=== PATIENT | female | born 2000 | race Caucasian/White ===

== ENCOUNTER → 2020-12-27 14:10 | Outpatient (CLI) | payer BC, SELFPAY ==
[2020-12-27 13:23] VITALS: BMI 36.7
[2020-12-27 14:54] LABS: Prolactin 8.2 ng/mL; Thyroid Stim Hormone (TSH) 1.11 uIU/mL (0.358-3.74)
[2020-12-31 20:07] LABS: Chlamydia By Nucleic Acid AMP Negative (Negative)
[2020-12-31 21:51] LABS: Gonococcus By Nucleic Acid AMP Negative (Negative)
[2021-01-15 15:53] LABS: HPV Reflexed? NOT INDICATED
== END ==
PROVIDERS: PCP Physician Assistant; Referring Provider Nurse Practitioner Women's Health; Visit Provider Nurse Practitioner Women's Health
DX: Z12.4 Encounter for screening for malignant neoplasm of cervix (principal); Z11.3 Encounter for screening for infections with a predominantly sexual mode of transmission; R30.9 Painful micturition, unspecified; N89.8 Other specified noninflammatory disorders of vagina; Z13.29 Encounter for screening for other suspected endocrine disorder; N92.6 Irregular menstruation, unspecified
CPT/HCPCS: 36415; 84146; 84443; 87070; 87086; 87205; 87491; 87591; 88175; G0145

== ENCOUNTER → 2022-01-14 | Outpatient (CLI) | payer BC, SELFPAY ==
[2022-01-14 18:37] LABS: Hemoglobin A1c 4.6 % (3.8-5.6)
[2022-01-14 18:58] LABS: hCG Titer Quant., Serum 18 mIU/mL (1-3)
[2022-01-17 15:08] LABS: Dilute Prothrombin Time (dPT) 37.1 sec (0.0-47.6); Dilute Russell Viper Venom 41.4 sec (0.0-47.0); PTT-LA 37.5 sec (0.0-51.9); Thrombin Time 18.8 sec (0.0-23.0); dPT Confirm Ratio 1.14 Ratio (0.00-1.34)
[2022-01-17 17:14] LABS: Anti-Cardiolipin Ab, IgA, Qn 25 APL U/mL (0-11); Anti-Cardiolipin Ab, IgG, Qn < 9 GPL U/mL (0-14); Anti-Cardiolipin Ab, IgM, Qn 9 MPL U/mL (0-12); Beta-2-Glycoprotein I IgA <9 (0-25); Beta-2-Glycoprotein I IgG <9 (0-20); Beta-2-Glycoprotein I IgM <9 (0-32); Interpretation Comment: (.)
== END | disposition home or self-care (01) ==
LOC: LAB 17:16
PROVIDERS: PCP Physician Assistant; Referring Provider Obstetrics & Gynecology; Visit Provider Obstetrics & Gynecology
DX: O03.9 Complete or unspecified spontaneous abortion without complication (principal); N96 Recurrent pregnancy loss
CPT/HCPCS: 36415; 83036; 84443; 84702; 86146; 86147

== ENCOUNTER → 2023-05-18 | Outpatient (CLI) | payer BC, SELFPAY ==
[2023-05-18 16:16] LABS: hCG Titer Quant., Serum 5280 mIU/mL (1-3)
[2023-05-21 07:08] LABS: Chlamydia By Nucleic Acid AMP Negative (Negative); Gonococcus By Nucleic Acid AMP Negative (Negative)
== END | disposition home or self-care (01) ==
PROVIDERS: PCP Physician Assistant; Referring Provider Registered Nurse; Visit Provider Registered Nurse
DX: Z34.90 Encounter for supervision of normal pregnancy, unspecified, unspecified trimester (principal)
CPT/HCPCS: 36415; 84702; 87086; 87491; 87591

== ENCOUNTER → 2023-05-20 | Outpatient (CLI) | payer BC, SELFPAY ==
[2023-05-20 14:37] LABS: Absolute Lymphocyte Count 2.85 X10^3/uL (0.83-4.51); Absolute Neutrophil Count 8.5 X10^3/uL (2.0-7.7); Basophil# 0.04 X10^3/uL; Basophil% 0.3 % (0-1); Eosinophil# 0.15 X10^3/uL; Eosinophils% 1.3 % (0-5); Hematocrit 39.6 % (37-47); Hemoglobin 12.9 g/dL (12.0-15.0); Lymphocyte # 2.85 X10^3/ul (0.83-4.51); Lymphocyte % 23.9 % (19-41); Mean Corp Hgb Conc 32.6 g/dL (32-36); Mean Corpuscular Hgb 28.5 pg (27.0-32.0); Mean Corpuscular Volume 87.6 fL (81-99); Monocyte# 0.37 X10^3/uL; Monocyte% 3.1 % (0-10); NRBC Flagged by Analyzer 0 % (0-5); Neutrophil # 8.46 X10^3/uL (2.7-7.7); Neutrophil % 71.1 % (47-70); Platelet Count 322 K/mm3 (150-450); RBC Distribution Width CV 12.1 % (11.6-14.6); Red Blood Count 4.52 M/mm3 (4.2-5.4); White Blood Count 11.9 K/mm3 (4.4-11.0)
[2023-05-20 15:36] LABS: hCG Titer Quant., Serum 9188 mIU/mL (1-3)
[2023-05-20 15:42] LABS: HIV - WCH Non-Reactive (Nonreactive); Hepatitis B Surface Antigen Non-Reactive (Nonreactive); Hepatitis C Antibody Non-Reactive (Nonreactive); Rubella IgG Reactive (Nonreactive); Syphilis Antibodies Non-reactive
== END | disposition home or self-care (01) ==
PROVIDERS: PCP Physician Assistant; Referring Provider Registered Nurse; Visit Provider Registered Nurse
DX: O36.80X0 Pregnancy with inconclusive fetal viability, not applicable or unspecified (principal); Z87.59 Personal history of other complications of pregnancy, childbirth and the puerperium
CPT/HCPCS: 36415; 84702; 85025; 86703; 86762; 86780; 86803; 86850; 86900; 86901; 87340

== ENCOUNTER → 2023-05-29 | Outpatient (CLI) | payer BC, SELFPAY ==
--- NOTE | 2023-05-29 07:52 | US_ITS ---
STUDY: FIRST TRIMESTER OBSTETRICAL ULTRASOUND REASON FOR EXAM: Female, 22 years old early viability LMP: April 14, 2023 TECHNIQUE: Transvaginal TECHNICAL QUALITY: Adequate. PRIOR ULTRASOUND: None. FINDINGS: There is visualization of a single gestational sac in a normal intrauterine position. The mean sac diameter (MSD) measures 2.39 cm, indicating an estimated gestational age (EGA) of 7 weeks, 3 days. The gestational sac shape is within normal limits. 5 mm x 15 mm x 3 mm subchorionic bleed. There is a visualized yolk sac. The yolk sac measures 3.1 cm. The placenta is non-visualized. There is visualization of a live embryo. The crown-rump length (CRL) measures 7.8 mm, indicating an estimated gestational age (EGA) of 6 weeks, 6 days. There is demonstrated cardiac activity with a heart rate of 130 bpm. The estimated gestation age (EGA) by LMP is 8 weeks, 3 days. The estimated date of delivery (EZRA) by LMP is January 05, 2024. The estimated gestation age (EGA) by US is 7 weeks, 1 days. The estimated date of delivery (EZRA) by US is January 14, 2024. The uterus measures 9.7 cm x 6.4 cm x 5.4 cm the uterus appears to be septated. The gestational sac is in the right side of the septum.. There is no demonstrated uterine fibroid. The cervix is closed. The right ovary measures 2.7 cm x 2.9 cm x 2 cm. There is no right ovarian cyst. There is no visualized right adnexal mass or complex lesion. The left ovary measures 2.3 cm x 1.3 cm x 1.7. There is no left ovarian cyst. There is no visualized left adnexal mass or complex lesion. There is no fluid in the cul de sac. US/Init OB < 14Wks US IMPRESSION: Live uterine gestation with a mean gestational age of 7 weeks and 1 day. Septated uterus. Small subchorionic bleed. Electronically Signed: Alonzo Clarke MD at 12:23 EST ,
== END | disposition home or self-care (01) ==
LOC: OPUS 07:50
PROVIDERS: PCP Physician Assistant; Referring Provider Registered Nurse; Visit Provider Registered Nurse
DX: O36.80X0 Pregnancy with inconclusive fetal viability, not applicable or unspecified (principal); Z87.59 Personal history of other complications of pregnancy, childbirth and the puerperium; Z3A.01 Less than 8 weeks gestation of pregnancy
CPT/HCPCS: 76801

== ENCOUNTER → 2023-10-30 | Outpatient (CLI) | payer BC, SELFPAY ==
[2023-10-30 15:09] LABS: Glucose Challenge Gest 1H 50g 130 mg/dL (70-140)
[2023-10-30 15:10] LABS: Absolute Lymphocyte Count 1.92 X10^3/uL (0.83-4.51); Absolute Neutrophil Count 10.4 X10^3/uL (2.0-7.7); Basophil# 0.03 X10^3/uL; Basophil% 0.2 % (0-1); Eosinophil# 0.07 X10^3/uL; Eosinophils% 0.5 % (0-5); Hemoglobin 11.3 g/dL (12.0-15.0); Lymphocyte # 1.92 X10^3/ul (0.83-4.51); Lymphocyte % 14.8 % (19-41); Mean Corp Hgb Conc 34.2 g/dL (32-36); Mean Corpuscular Hgb 30.1 pg (27.0-32.0); Mean Platelet Vol. 9.2 fl (6.2-12.0); Monocyte# 0.41 X10^3/uL; Monocyte% 3.2 % (0-10); NRBC Flagged by Analyzer 0 % (0-5); Neutrophil # 10.43 X10^3/uL (2.7-7.7); Neutrophil % 80.8 % (47-70); Platelet Count 241 K/mm3 (150-450); RBC Distribution Width SD 41.6 fl (35.1-43.9); Red Blood Count 3.75 M/mm3 (4.2-5.4); White Blood Count 12.9 K/mm3 (4.4-11.0)
[2023-10-30 16:26] LABS: HIV - WCH Non-Reactive (Nonreactive); Syphilis Antibodies Non-reactive
== END | disposition home or self-care (01) ==
PROVIDERS: Referring Provider Registered Nurse; Visit Provider Registered Nurse
DX: Z34.90 Encounter for supervision of normal pregnancy, unspecified, unspecified trimester (principal)
CPT/HCPCS: 36415; 82950; 85025; 86703; 86780; 86850; 86900; 86901

== ENCOUNTER → 2024-01-08 | Outpatient (CLI) | payer BC, SELFPAY | END | disposition home or self-care (01) | LOC: LABSPEC 16:18 | PROVIDERS: Referring Provider Registered Nurse; Visit Provider Registered Nurse | DX: Z34.93 Encounter for supervision of normal pregnancy, unspecified, third trimester (principal) | CPT/HCPCS: 87081 ==

== ENCOUNTER 2024-01-21 16:31 | Inpatient (IN) | payer BC, SELFPAY ==
--- NOTE | 2024-01-21 14:02 | US_ITS ---
STUDY: SECOND AND THIRD TRIMESTER OBSTETRICAL ULTRASOUND - LIMITED REASON FOR EXAM: Female, 23 years old growth LMP: Unknown. PRIOR ULTRASOUND: No relevant prior comparison study available TECHNIQUE: Transabdominal TECHNICAL QUALITY: Adequate. FINDINGS: There is a single intrauterine fetus. The fetus is in a cephalic presentation. There is demonstrated cardiac activity with a heart rate of 153 bpm. There is decreased amniotic fluid volume consistent with oligohydramnios. The largest amniotic fluid pocket measures 2.9 cm. The amniotic fluid index (FRAN) is 2.9 cm. The placenta is anterior in location and is not low lying. There are Grade 3 placental changes. The cervix is not visualized. BIOMETRY: BPD: 9.1 cm: 36 weeks, 6 days HC: 33.5 cm: 38 weeks, 2 days AC: 35.9 cm: 39 weeks, 6 days FL: 7.4 cm: 38 weeks, 0 days age by current US: 38 weeks, 1 days. EZRA by current US: 02/03/2024. Estimated weight: 3648 grams, +/- 547 grams. US/OB Limited With Biometrics IMPRESSION: Single live intrauterine fetus in cephalic presentation with an estimated gestational age of 38 weeks and 1 day. Oligohydramnios. FRAN measures 2.9 cm. Findings were communicated to the provider by the technologist. The patient was sent to labor and delivery. Electronically Signed: Jose Cadena MD at 15:29 EDT ,
[2024-01-21 15:36] VITALS: BMI 39.6
[2024-01-21 15:43] VITALS: PULSE 110; RESP 20; TEMP 37.1
[2024-01-21 15:45] VITALS: BP 137/91; PULSE 110
--- NOTE | 2024-01-21 17:18 | HP.PCM.OB_ITS ---
HPI - General General Date of Admission: 01/21/24 HPI Narrative SHERRY CARREON, is a 23 F who presents G3, P0 at 41 weeks with oligohydramnios FRAN of 2 cm diagnosed today on ultrasound measuring 8 pounds on ultrasound. Patient denies any loss of fluid admits good movement no vaginal bleeding. She denies any regular contractions. She has been receiving her care between our office and home community educator named Meme Ortiz. Maternal Data Information EZRA Calculator Estimated Delivery Date Method Current WG Current Estimate 01/14/24 Ultrasound #1 41w 0d Other Estimates 01/05/24 LMP (Certain) 42w 2d PFSH PFSH Medical History (Updated 01/21/24 @ 19:[address] Rubina Rg MD) Oligohydramnios Headache Seasonal allergies Migraine Complete History of miscarriage, currently Supervision of high risk , antepartum Home Medications ?Medication ?Instructions ?Recorded ?Last Taken ?Type PNV 178-FA 180 mcg-om3 35 mg-dha tab PO 12/20/21 Unknown History 25 mg-epa 5 mg-fish oil chew tablet calcium carb-magnesium carb 250 1 tab PO DAILY 11/30/23 Unknown History mg-300 mg tablet ferrous sulfate 105 mg-C 500 1 tab PO DAILY 11/30/23 Unknown History mg-folic acid 800 mcg tablet,extend.rel Allergy/AdvReac Type Severity Reaction Status Date / Time amoxicillin (From Augmentin) Allergy Intermediate Hives Verified 01/08/24 08:16 clavulanic acid (From Allergy Intermediate Hives Verified 01/08/24 08:16 Augmentin) Penicillins Allergy Intermediate Hives Verified 01/08/24 08:16 Family History Father Hypertension Grandmother Hypertension Aunt Hypertension Grandfather Cancer, Onset Age: 50 Paternal Mother FHx: migraine headaches Surgical History Kramer teeth removed Social History adopted: No household members: spouse housing: house number of children: 0 current occupational status: employed 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 current occupational exposures/hazards: No pets and animals: Yes pets and animals: dog(s) history of recent travel: Yes ([place]) out of state: Yes out of country: No sexually active: Yes Smoking Status: Never smoker alcohol intake: former details: social/occasional prior to substance use type: does not use well-balanced diet: daily or most days caffeine: Yes Type: carbonated beverages Number of servings: 1 eating out: 1-3 times/week during the past year weight has: remained stable what type of physical activity do you participate in: other details: crossfit frequency: 1-2 times per week duration: 45-60 minutes/day suzanne/yazidi: Bahai seatbelt use: always do you feel safe at home: Yes additional social history: - 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 Date Name GA/Weeks Outcome Route Bth Weight Gen Labor Lgth Anesthesia Del Locatn Provider FOB 03/05/21 4 spontaneous 01/14/22 6 spontaneous Delivery Date: 01/14/22 Last Updated by: Rubina Rg MD no d and c required, cytotec given Visit Details Expected Delivery Route/Plan , cocare. plan homebirth with meme ortiz. Labor Preferences- CB/BF classes: [] labor support person: [] labor intervention preferences: [] pain management options preferred: prefers minimal intervention, struggles with IV cut cord/dad catch: [] : [] PP control planned: [] discussed possible routes of delivery and associated risks: [] special requests: [] Plans Covid status: [] Flu vaccine: na Tdap vaccine: given Rhogam: given LARC form signed: [] movement and labor precautions reviewed. Problem list reviewed and updated with the most current plan of care details and appropriate orders placed. Relevant counseling for the gestational age provided. Continue routine care and follow up unless otherwise noted in visit notes/problem list details OB Flowsheet Initial Weight: 240 lb Date -?-?-?-?-?-?-?-?-?-?-?-?- EGA Weight BP Urine Prot -?-?-?-?-?--?-?-?-?-?-?-?- Glucose FHR FuHt Pres Dilation -?-?-?-?-?-?-?-?-?-?-?--?- Effaced St Visit Note 05/18/23 -?-?-?-?-?-?-?-?-?-?-?-?- 5w 4d 240 lb 6 oz (+6 oz) 140/85 -?-?-?-?-?-?-?-?-?-?-?-?- -?-?-?-?-?-?-?-?-?-?-?-?- LC- GS measuring 4w6d, +YS. obtaining hcg quants and repeat us in 2 weeks. gc/ct collected. 07/01/23 -?-?-?-?-?-?-?-?-?-?-?-?- 11w 6d 231 lb 4 oz (-8 lb 12 oz) 122/80 -?-?-?-?-?-?-?-?-?-?-?-?- 160 -?-?-?-?-?-?-?-?-?-?-?-?- JV- no lof or va ginal bleeding. 07/29/23 -?-?-?-?-?-?-?-?-?-?-?-?- 15w 6d 233 lb 2 oz (-6 lb 14 oz) 124/82 Negative -?-?-?-?-?-?-?-?-?-?-?-?- Negative 163 -?-?-?-?-?-?-?-?-?-?-?-?- -No VB, nathan jasso. Denies concerns. 10/16/23 -?-?-?-?-?-?-?-?-?-?-?-?- 27w 1d 238 lb 6 oz (-1 lb 10 oz) 135/81 -?-?-?-?-?-?-?-?-?-?-?-?- 143 27 -?-?-?-?-?-?-?-?-?-?-?-?- planning co care now with Meme Ortiz. LC- no vb/ctx/lof, good fm. plans 28 week labs in 2 weeks to obtain rhogam at the same time. planning co care now with Meme Ortiz with a homebirth reviewed risk and benefits. 10/30/23 -?-?-?-?-?-?-?-?-?-?-?-?- 29w 1d 239 lb 3 oz (-13 oz) 139/84 Negative -?-?-?-?-?-?-?-?-?-?-?-?- Negative 150 29 -?-?-?-?-?-?-?-?-?-?-?-?- LC- no vb/ctx/lo f. good fm. 28 week labs pending. LC- no vb/ctx/lof. good fm. 28 week labs pending. rhogam, tdap and larc done today. 11/30/23 -?-?-?-?-?-?-?-?-?-?-?-?- 33w 4d 245 lb (+5 lb) 124/85 Trace A -?-?-?-?-?-?-?-?-?-?-?-?- Negative 150 33 -?-?-?-?-?-?-?-?-?-?-?-?- Sm- no vb lof go od fm no reuglar ctx 12/16/23 -?-?-?-?-?-?-?-?-?-?-?-?- 35w 6d 244 lb (+4 lb) 124/84 Negative -?-?-?-?-?-?-?-?-?-?-?-?- Negative 145 36 -?-?-?-?-?-?-?-?-?-?-?-?- SM- no vb lof go od fm no regualr ctx 12/28/23 -?-?-?-?-?-?-?-?-?-?-?-?- 37w 4d 246 lb (+6 lb) 135/88 Negative -?-?-?-?-?-?-?-?-?-?-?-?- Negative 140 37 0 -?-?-?-?-?-?-?-?-?-?-?-?- SM- no vb lof go od fm no regular ctx 01/08/24 -?-?-?-?-?-?-?-?-?-?-?-?- 39w 1d 251 lb 8 oz (+11 lb 8 oz) 118/72 Trace -?-?-?-?-?-?-?-?-?-?-?-?- Negative 135 38 0.5 -?-?-?-?-?-?-?-?-?-?-?-?- 50 -3 LC- gbs co llected today. no vb/ctx/lof. discussed postdates plan. nst/fran after 41 weeks. NST FHR Rate Baby A Baseline: 140 Variability:: Moderate Accelerations:: 15 x 15 Decelerations:: None NST Reactive:: Yes FHR Category:: Category I Uterine Activity:: irregular ROS Constitutional Constitutional: Reports systems reviewed and no addt'l complaints, except as documented Eyes Eyes: Denies change in vision ENT HEENT: Reports systems reviewed and no addt'l complaints, except as documented; Denies headache(s) Cardiovascular Cardiovascular: Reports systems reviewed and no addt'l complaints, except as documented; Denies chest pain or dyspnea Respiratory/Chest Respiratory/Chest: Reports systems reviewed and no addt'l complaints, except as documented Gastrointestinal Gastrointestinal: Reports systems reviewed and no addt'l complaints, except as documented; Denies abdominal pain Genitourinary Genitourinary: Reports systems reviewed and no addt'l complaints, except as documented, contractions Details: present (irregular) and movement Details: present; Denies dysuria or genital lesions Musculoskeletal Musculoskeletal: Reports systems reviewed and no addt'l complaints, except as documented Neurologic Neurologic: Reports systems reviewed and no addt'l complaints, except as documented Endocrine Endocrinology: Reports systems reviewed and no addt'l complaints, except as documented Vital Signs Vital Signs Vital Signs: 01/21/24 15:43 01/21/24 15:43 01/21/24 15:43 Temperature Temperature Source Tympanic Pulse Rate 110 H Respiratory Rate 20 H Blood Pressure BP Systolic BP Diastolic 01/21/24 15:43 01/21/24 15:45 01/21/24 15:45 Temperature 98.8 F Temperature Source Pulse Rate 110 H Respiratory Rate Blood Pressure 137/91 H BP Systolic 137 BP Diastolic 91 Weight Weight: 253 lb 8.505 oz Body Mass Index (BMI) 39.6 Physical Exam Const alert, oriented x3, no apparent distress and healthy appearing HEENT normocephalic and moist oral mucous membranes Head and Scalp: atraumatic Neck full ROM, no lymphadenopathy, supple and thyroid normal General: trachea midline Lymph Lymphatic: no lymphadenopathy noted Chest inspection of chest normal Resp normal respiratory effort Cardio regular rate GI normal to inspection, nondistended, normoactive bowel sounds, soft to palpation and non-tender Inspection: gravid external exam normal Manual OB Exam: estimated gestational size appropriate, presentation cephalic, dilated, effaced and station Extremity normal to inspection General Extremity: Negative for edema Skin no rashes or lesions noted Neuro no focal motor deficits and deep tendon reflexes 2+ bilaterally Motor Exam: strength 5/5 throughout and clonus absent Psych mental status grossly normal Labs Labs Labs: Blood Type A NEGATIVE Antibody Screen NEGATIVE Hct 35.7 % (37-47) L Hgb 12.2 g/dL (12.0-15.0) Obstetrics Ultrasound Syphilis Total Ab Non-reactive Rubella IgG Antibody Reactive (Nonreactive) Hep Bs Antigen Non-Reactive (Nonreactive) Hepatitis C Antibody Non-Reactive (Nonreactive) Chlamydia DNA (AGUST[place]N) Negative (Negative) N.gonorrhoeae DNA ([place]UST[place]N) Negative (Negative) HIV 1&2 Antibody Non-Reactive (Nonreactive) Glucose 1 Hr 50 gm 130 mg/dL (70-140) Assessment & Plan (1) Depression: QUALIFIERS: Depression Type: unspecified Qualified Code(s): F32.A - Depression, unspecified COMMENT: mild, not being treated with medication (2) History of recurrent miscarriages: COMMENT: hcg x2, if rising will obtain formal us in 1-2 weeks. (3) Antiphospholipid antibody positive: COMMENT: Only anticardiolipin IgA present-per MFM not problematic. ASA 81mg only (4) : QUALIFIERS: Weeks of gestation: 39 weeks Qualified Code(s): Z3A.39 - 39 weeks gestation of COMMENT: gbs negative. discussed genetic & carrier testing. planning a home with Meme Ortiz. co-care patient., nl GCT (5) Supervision of high-risk : QUALIFIERS: Trimester: second trimester Qualified Code(s): O09.92 - Supervision of high risk , unspecified, second trimester COMMENT: PRR , EZRA 01/05/24 boy bayron Carlos (6) Obesity (BMI 30-39.9): (7) Rh negative status during : QUALIFIERS: Trimester: second trimester Qualified Code(s): O26.892 - Other specified related conditions, second trimester; Z67.91 - Unspecified blood type, Rh negative COMMENT: rhogam and 28 weeks and prn for bleeding. (8) Encounter for induction of labor: (9) Oligohydramnios in third trimester: PLAN: Plan Patient presents IOL, plan management for with barreto bulb. Pain management: prefers minimal intervention. GBS negative. Management of any complications: none I have reviewed the [facility] and made any clinically relevant updates.
[2024-01-21 17:22] VITALS: BP 144/77; PULSE 98
[2024-01-21] MEDS: Lactated Ringers 1,000 ML 50 ML IV (18:00)
[2024-01-21 18:12] VITALS: BP 144/81; PULSE 101
[2024-01-21 18:33] LABS: Absolute Lymphocyte Count 2.35 X10^3/uL (0.83-4.51); Absolute Neutrophil Count 10.5 X10^3/uL (2.0-7.7); Basophil# 0.03 X10^3/uL; Basophil% 0.2 % (0-1); Eosinophil# 0.04 X10^3/uL; Eosinophils% 0.3 % (0-5); Hematocrit 35.7 % (37-47); Hemoglobin 12.2 g/dL (12.0-15.0); Lymphocyte # 2.35 X10^3/ul (0.83-4.51); Lymphocyte % 17.3 % (19-41); Mean Corp Hgb Conc 34.2 g/dL (32-36); Mean Corpuscular Hgb 30.6 pg (27.0-32.0); Mean Corpuscular Volume 89.5 fL (81-99); Mean Platelet Vol. 10.2 fl (6.2-12.0); Monocyte# 0.61 X10^3/uL; Monocyte% 4.5 % (0-10); NRBC Flagged by Analyzer 0 % (0-5); Neutrophil # 10.53 X10^3/uL (2.7-7.7); Neutrophil % 77.3 % (47-70); Platelet Count 231 K/mm3 (150-450); RBC Distribution Width CV 13.3 % (11.6-14.6); RBC Distribution Width SD 43.8 fl (35.1-43.9); Red Blood Count 3.99 M/mm3 (4.2-5.4); White Blood Count 13.6 K/mm3 (4.4-11.0)
[2024-01-21] MEDS: 0.9% Normal Saline Single 100 ML IV.SOLN. INTRA-UTER (18:45)
[2024-01-21] MEDS: Mag /Aluminum/Simeth WCH UDC 30 ML ORAL.SUSP PO (18:56)
[2024-01-21 19:13] LABS: Syphilis Antibodies Non-reactive
[2024-01-21 19:19] VITALS: BP 143/83; PULSE 108; RESP 14; TEMP 36.9; O2SAT 98
[2024-01-21] MEDS: Acetaminophen 500 MG Tablet PO (21:24)
[2024-01-21 21:25] VITALS: BP 141/80; PULSE 96; RESP 14; TEMP 36.8; O2SAT 98
[2024-01-22] VITALS (48 sets, daily range): BP systolic 97–155; BP diastolic 53–92; PULSE 84–127; RESP 14–18; TEMP 36.1–37.3; O2SAT 98
[2024-01-22] MEDS: Mag /Aluminum/Simeth WCH UDC 30 ML ORAL.SUSP PO ×2 (00:27→06:14)
[2024-01-22] MEDS: 0.9% Saline Lock 10 ML Syringe IV ×2 (01:47→20:07)
[2024-01-22] MEDS: Metoclopramide 10 MG/2 ML Vial IV (01:47)
[2024-01-22 02:10] LABS: AST(SGOT) 18 U/L (15-37); Alanine Aminotransfer ALT/SGPT 12 U/L (13-56); EST Glomerular Filtration Rate 107 mL/min (>60); Est Glom Filt Rate - Afr Amer 130 mL/min (>60); Uric Acid 6.1 mg/dL (2.6-6.0)
[2024-01-22 02:22] LABS: Protein, Urine (Random) 11.1 mg/dL (<11.9); Protein:Creat Ratio 101 mg/g CRE (0-200)
[2024-01-22] MEDS: Acetaminophen 500 MG Tablet PO (06:09)
[2024-01-22] MEDS: Oxytocin 15 Units/NS 250ml 15 UNITS/250 ML IV.SOLN 2 UNITS IV (06:49)
--- NOTE | 2024-01-22 08:19 | PN_ITS ---
Progress Note pt is sitting on a birthing ball and breathing through contractions. Her mother and [id number], and are in the room. we had a lengthy discussion about oligohydramnios and what this means especially in the face of a headache and high blood pressure that this could very well mean that she has pre- eclampsia with severe features. current tracing: FHT: Moderate variability reactive no decelerations category I tracing [place]: irregular Contractions cx exam deferred pitocin: 4 mu/min A/P: oligohydramnios, high blood pressure, and headache- this possibly is severe pre- eclampsia. her adolescent counselor that she has hired is being a barrier to her management. I have discussed this with the nursing leaders and plan is to prepare to have a professional conversation with the adolescent counselor to ask her to step back in order to care effectively for the patient.
[2024-01-22] MEDS: Lactated Ringers 1,000 ML 999 ML IV (14:34)
[2024-01-22] MEDS: fentaNYL-bupivacaine (epidural) 100 ML BAG EPIDURAL (15:07)
[2024-01-22] MEDS: Lactated Ringers 1,000 ML 200 ML IV (16:41)
--- NOTE | 2024-01-22 19:13 | OP.PCM_ITS ---
Assessment & Plan (1) Oligohydramnios in third trimester: (2) Encounter for induction of labor: (3) Rh negative status during : QUALIFIERS: Trimester: second trimester Qualified Code(s): O26.892 - Other specified related conditions, second trimester; Z67.91 - Unspecified blood type, Rh negative COMMENT: rhogam and 28 weeks and prn for bleeding. (4) Obesity (BMI 30-39.9): (5) Supervision of high-risk : QUALIFIERS: Trimester: second trimester Qualified Code(s): O09.92 - Supervision of high risk , unspecified, second trimester COMMENT: PRR , EZRA 01/05/24 boy bayron Carlos (6) : QUALIFIERS: Weeks of gestation: 39 weeks Qualified Code(s): Z3A.39 - 39 weeks gestation of COMMENT: gbs negative. discussed genetic & carrier testing. planning a home with Meme Ortiz. co-care patient., nl GCT (7) Antiphospholipid antibody positive: COMMENT: Only anticardiolipin IgA present-per MFM not problematic. ASA 81mg only (8) History of recurrent miscarriages: COMMENT: hcg x2, if rising will obtain formal us in 1-2 weeks. (9) Depression: QUALIFIERS: Depression Type: unspecified Qualified Code(s): F32.A - Depression, unspecified COMMENT: mild, not being treated with medication Maternal Data Information EZRA Calculator Estimated Delivery Date Method Current WG Current Estimate 01/14/24 Ultrasound #1 41w 1d Other Estimates 01/05/24 LMP (Certain) 42w 3d Final EZRA: 01/14/24 Final EZRA Source: US <20 weeks Gestational age: 41 weeks 1 day Vaginal Delivery Maternal Presentation Maternal Presentation: Medically Indicated Induction Type of Induction: Pitocin, Barrett Bulb, Amniotomy and Cytotec Medical Reason for Induction: - (oligohydramnios ) Operative Information Date of Procedure: 01/22/24 Pre-Operative Diagnosis: 23 y/o @ 41 weeks 1 day, oligohydramnios, marginal cord insertion Post-Operative Diagnosis: 23 y/o @ 41 weeks 1 day, oligohydramnios, marginal cord insertion Surgery / Procedure Performed: Spontaneous Vaginal Delivery Type of Anesthesia: Epidural Drain: Barrett to straight drain Estimated Blood Loss: 300cc Time of Delivery: 18:48 Findings Description of Procedure: Patient began pushing and delivered the head in the ALEX presentation. The head was delivered atraumatically. The anterior and posterior shoulders delivered without complication followed by the rest of the infant and the was placed on the maternal abdomen. Delayed cord clamping was employed for approximately 60 seconds. Cord was clamped and cut and gentle traction was applied to the cord and the placenta delivered spontaneously immediately following it was noted to be intact with three-vessel cord. The perineum was inspected and noted to be intact. There was a small vaginal side wall tear. This was reaproximated using a 3-0 vicryl in a figure of 8 fashion. EBL was 300 cc. Patient and tolerated delivery well. baby boy Beau Presentation: Vertex Amniotic Membrane Rupture Type: Spontaneous Amniotic Fluid Description: Clear Placental Delivery Description: Spontaneous Placenta Disposition: [facility] Cord Vessel Description: 3 Vessels Cord Entanglement: None A Gender: Male (1 minute): 8 (5 minute): 9 Delayed Cord Clamping: Yes Post Vaginal Delivery Medications Given After Delivery: IV Pitocin Episiotomy Description: None Laceration: None Complication Complications: None Multi Select Codes Urinary/Genital Urinary/Genital CPT Codes: 21101 Vaginal Delivery [facility]
--- NOTE | 2024-01-22 19:17 | DCINST_ITS ---
Discharge Instructions Diet Discharge Diet: No restrictions Activity Discharge Activity: Return to Normal Activity, May Not Drive (while taking narcotic pain medications.) and May Shower May resume sexual activity in: 4-6 weeks Dressing / Incision Call your doctor if your incision/area has: Continuous Slow Oozing, Sudden Increased Bleeding, Increased Pain/ Swelling, Increased Redness and Foul Smelling Discharge Follow Up Care Please Follow Up With: Jennifer Carr, DO When: Call [phone] to make an appointment with your doctor in 6 weeks. If you had elevated blood pressure or 4th degree laceration, you will need to be seen in 2 weeks. Test Results: Test results from this visit will be discussed in further detail at your follow- up appointment, if applicable. Discharge Plan Admission Admit Date/Time: 01/21/24 16:31 Attending Provider: Jennifer Carr Primary Care Provider: Madison Chawla Primary Discharge Orders/Prescriptions Prescriptions: No Action PNV no.[id number] 180 mcg-35 mg- 25 mg-5 mg tablet,chewable PO calcium carb-magnesium carb 250-300 mg tablet 1 tab PO DAILY ferrous [id number]-X-hbgkl acid 105 mg iron- 500 mg-800 mcg tablet extended release 1 tab PO DAILY Rx Instructions: administer on an empty stomach Referrals / Follow Up: Care Physician,No Primary [Primary Care Provider] -
[2024-01-22] MEDS: LACTATED RINGERS 500 ML 999 ML IV (20:50)
[2024-01-22 21:32] LABS: Absolute Neutrophil Count 20.1 X10^3/uL (2.0-7.7); Basophil# 0.04 X10^3/uL; Basophil% 0.2 % (0-1); Hemoglobin 10.7 g/dL (12.0-15.0); Mean Corp Hgb Conc 34.5 g/dL (32-36); Mean Corpuscular Hgb 30.7 pg (27.0-32.0); Mean Corpuscular Volume 89.1 fL (81-99); Mean Platelet Vol. 9.6 fl (6.2-12.0); Monocyte% 4.4 % (0-10); NRBC Flagged by Analyzer 0 % (0-5); Neutrophil # 20.09 X10^3/uL (2.7-7.7); Neutrophil % 87.7 % (47-70); POSITIVE DIFFERENTIAL YES; Platelet Count 215 K/mm3 (150-450); RBC Distribution Width CV 13.2 % (11.6-14.6); RBC Distribution Width SD 42.7 fl (35.1-43.9); Red Blood Count 3.48 M/mm3 (4.2-5.4); White Blood Count 22.9 K/mm3 (4.4-11.0)
[2024-01-22 21:44] LABS: Differential Indicated SCAN CRITERIA MET
[2024-01-22 21:53] LABS: Differential Comment SCANNED
--- NOTE | 2024-01-22 22:30 | NURSING ---
this RN gave bedside report to leandro RN. that RN to assume care of couplet at this time.
[2024-01-23] VITALS (11 sets, daily range): BP systolic 121–136; BP diastolic 60–74; PULSE 88–110; RESP 14–17; TEMP 36.4–37.1; O2SAT 97–99
[2024-01-23] MEDS: 0.9% Saline Lock 10 ML Syringe IV (04:41)
[2024-01-23] MEDS: Rho(D) Immune Globulin 300 MCG (1500 Unit) Syringe IV (04:41)
--- NOTE | 2024-01-23 11:17 | PCM.PN.OB ---
Subjective Subjective Patient doing well without complaints. Tolerating PO. Ambulating and voiding without difficulty. Feeding well. Denies chest pain, shortness of breath, calf pain/swelling, fevers, chills, lightheadedness. We had a lengthy discussion about safety during her next and making choices based on medical expertise. She would like to try to go home after the baby is cleared by the source inspector but not if it is going to be too late. Objective Data Objective Data Vital Signs: Vital Signs Temp Pulse Resp BP Pulse Ox O2 Del Method 97.6 F L 110 H 17 136/74 H 97 Room Air 01/23/24 04:00 01/23/24 11:06 01/23/24 04:00 01/23/24 11:06 01/23/24 04:10 01/23/24 04:00 Oxygen Delivery Method Room Air Weight: 253 lb 8.505 oz Body Mass Index (BMI) 39.6 Intake & Output: Intake and Output for Last 24 Hours 01/21/24 01/22/24 01/23/24 23:59 23:59 23:59 Intake Total 0.83 / 0.83 3165.50 / 3165.50 Output Total 950 / 950 350 / 350 Balance 0.83 / 0.83 2215.50 / 2215.50 -350 / -350 Lab / Micro Data 01/22/24 21:10 01/21/24 18:00 Labs: Laboratory Results - last 24 hr 01/22/24 21:10: WBC 22.9 H, RBC 3.48 L, Hgb 10.7 L, Hct 31.0 L, MCV 89.1, MCH 30.7, MCHC 34.5, RDW Std Deviation 42.7, RDW Coeff of Almas 13.2, Plt Count 215, MPV 9.6, Immature Gran % (Auto) 0.700, Neut % (Auto) 87.7 H, Lymph % (Auto) 7.0 L, Callahan % (Auto) 4.4, Eos % (Auto) 0.0, Baso % (Auto) 0.2, Absolute Neuts (auto) 20.1 H, Absolute Lymphs (auto) 1.60, Nucleated RBC % 0, Differential Comment SCANNED ROS Constitutional Constitutional: Denies chills, fatigue, fever(s), poor appetite or weakness Eyes Eyes: Denies blurry vision, change in vision, seeing flashes or spots in vision ENT HEENT: Denies dizziness, headache(s), loss taste/smell or sore throat Cardiovascular Cardiovascular: Denies chest pain, dizziness, dyspnea, irregular heart rhythm, palpitations or rapid heart rate Respiratory/Chest Respiratory/Chest: Denies chest tightness, cough, dyspnea or breast pain Gastrointestinal Gastrointestinal: Denies abdominal pain, constipation or vomiting Genitourinary Genitourinary: Denies dysuria or flank pain Musculoskeletal Musculoskeletal: Denies difficulty walking, joint pain, limited range of motion or numbness Neurologic Neurologic: Denies abnormal movements, abnormal speech, dizziness, numbness, seizure-like activity or syncope Psychiatric Psychiatric: Denies anxiety, behavioral changes, change in appetite, confusion, depression or suicidal thoughts Physical Exam Const alert, oriented x3 and no apparent distress General Appearance: cooperative and comfortable Resp normal respiratory effort Cardio regular rate GI normal to inspection, nondistended, normoactive bowel sounds GI Narrative: uterus is firm below umbilicus Palpation: soft Back/Spine no CVA tenderness and thoraco-lumbar ROM normal Extremity normal to inspection, no clubbing, cyanosis or edema, no calf tenderness and no pedal edema Psych mental status grossly normal, thought process normal, cooperative, affect normal, speech normal, activity/motor behavior normal, denies homicidal ideation and denies suicidal ideation Assessment & Plan (1) Vaginal delivery: COMMENT: SHANNAN- 01/22/24 PLAN: Plan s/p PPD # 1. routine post delivery care 2. breast feeding- support given 3. rh negative work up complete 4. rubella immune
[2024-01-24] MEDS: Naproxen 500 MG Tablet PO (00:27)
[2024-01-24 03:38] VITALS: BP 119/57; PULSE 82; PULSE 85; RESP 18; TEMP 36.6; O2SAT 98
[2024-01-24 08:00] VITALS: BP 127/71; PULSE 78; RESP 17; TEMP 36.8; O2SAT 98
--- NOTE | 2024-01-24 08:34 | PCM.DC.SUM ---
Providers Date of Admission: 01/21/24 Primary Care Physician: No Primary Care Phys Reason For Visit: VAGINAL DELIVERY Diagnosis Discharge Diagnosis (1) Vaginal delivery: Status: Acute Code(s): O80 - Encounter for full-term uncomplicated delivery Plan s/p PPD # 1. routine post delivery care 2. breast feeding- support given 3. rh negative work up complete 4. rubella immune Medications at Discharge Home Medications PNV 178-FA 180 mcg-om3 35 mg-dha 25 mg-epa 5 mg-fish oil chew tablet tab PO 12/20/21 calcium carb-magnesium carb 250 mg-300 mg tablet 1 tab PO DAILY 11/30/23 ferrous sulfate 105 mg-C 500 mg-folic acid 800 mcg tablet,extend.rel 1 tab PO DAILY 11/30/23 Hospital Course Operations None Procedures - (vaginal delivery ) Summary of Care Provided Minutes Spent on Discharge: 15 Hospital Course: The patient was admitted to L&D on 01/21/24 for IOL due to oligohydraminos. She progressed to complete on hospital day #2 and delivered a viable infant without complications. On day #1 lochia was lightening up and she required some assistance with breast feeding. On post day #2 (HD #3) she denies shortness of breath, chest pain, heavy bleeding, or nursing difficulties. She is now being discharged to home in stable condition. Physical Exam Const alert, oriented x3 and no apparent distress General Appearance: cooperative and comfortable Resp normal respiratory effort Cardio regular rate GI normal to inspection, nondistended, normoactive bowel sounds GI Narrative: uterus is firm below umbilicus Palpation: soft Back/Spine no CVA tenderness and thoraco-lumbar ROM normal Extremity normal to inspection, no clubbing, cyanosis or edema, no calf tenderness and no pedal edema Psych mental status grossly normal, thought process normal, cooperative, affect normal, speech normal, activity/motor behavior normal, denies homicidal ideation and denies suicidal ideation Weight / BMI Weight Weight: 253 lb 8.505 oz Body Mass Index (BMI) 39.6 ABG / Lab / Microbiology Data 01/22/24 21:10 01/21/24 18:00 D/C Instructions Discharge Diet: No restrictions May resume sexual activity in: 4-6 weeks Call your doctor if your incision/area has: Continuous Slow Oozing, Sudden Increased Bleeding, Increased Pain/ Swelling, Increased Redness and Foul Smelling Discharge Please Follow Up With: Jennifer Carr, DO When: Call [phone] to make an appointment with your doctor in 6 weeks. If you had elevated blood pressure or 4th degree laceration, you will need to be seen in 2 weeks. Meaningful Use Info Meaningful Use Meaningful Use Diagnoses (Choose all that apply): None applicable Ischemic Stroke Statin Dosing Therapy Reference: STATIN DOSE THERAPY REFERENCE: * Patients > 75 years receive moderate or high dose statin therapy. * Patients 75 years or YOUNGER should receive HIGH intensity statin dose unless contraindicated. You will be required to document reason for non-treatment if statin daily dose does not meet guidelines. HIGH DOSE STATIN THERAPY DAILY Atorvastatin > than or = to 40 mg Rosuvastatin > than or = to 20 mg Amlodipine + Atorvastatin > than or = to 2.5/40 mg Ezetimibe + Simvastatin 10/80 mg Simvastatin 80mg Discharge Plan Admission Admit Date/Time: 01/21/24 16:31 Primary Reason for Your Visit: vaginal delivery Attending Provider: Jennifer Carr Primary Care Provider: Care Physician,[place] Primary Discharge Orders/Prescriptions Prescriptions: Continued PNV no.[id number] 180 mcg-35 mg- 25 mg-5 mg tablet,chewable PO calcium carb-magnesium carb 250-300 mg tablet 1 tab PO DAILY ferrous jakhyep-I-uwejz acid 105 mg iron- 500 mg-800 mcg tablet extended release 1 tab PO DAILY Rx Instructions: administer on an empty stomach Referrals / Follow Up: Care Physician,No Primary [Primary Care Provider] - Disposition Disposition (needs filled in before D/C Order can be placed): Home, Self Care
[2024-01-24 08:47] VITALS: PULSE 78; O2SAT 98
[2024-01-24 08:48] VITALS: BP 127/71; PULSE 77
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
== END 2024-01-24 11:25 | disposition home or self-care (01) | DRG 806 ==
LOC: WP 16:41
PROVIDERS: Obstetrics & Gynecology; Admitting Provider Obstetrics & Gynecology; Visit Provider Obstetrics & Gynecology
DX: O41.03X0 Oligohydramnios, third trimester, not applicable or unspecified (principal); Z37.0 Single live birth; O71.4 Obstetric high vaginal laceration alone; F32.A Depression, unspecified; O99.214 Obesity complicating childbirth; O48.0 Post-term pregnancy; O99.344 Other mental disorders complicating childbirth; Z3A.41 41 weeks gestation of pregnancy; O43.193 Other malformation of placenta, third trimester; N96 Recurrent pregnancy loss; Z67.91 Unspecified blood type, Rh negative
CPT/HCPCS: 59025; 59050; 76816; 82565; 82570; 84156; 84450; 84460; 84550; 85025; 86780; 86850; 86900; 86901; 90384; 99221; J7120; A4216; G0378; J2790; J2791

== ENCOUNTER → 2025-02-07 | Outpatient (CLI) | payer BC, SELFPAY ==
[2025-02-08 20:08] LABS: Chlamydia By Nucleic Acid AMP Negative (Negative); Gonococcus By Nucleic Acid AMP Negative (Negative)
== END | disposition home or self-care (01) ==
LOC: LABSPEC 11:51
PROVIDERS: Visit Provider Obstetrics & Gynecology
DX: O09.90 Supervision of high risk pregnancy, unspecified, unspecified trimester (principal); Z12.4 Encounter for screening for malignant neoplasm of cervix; Z3A.00 Weeks of gestation of pregnancy not specified
CPT/HCPCS: 87086; 87491; 87591; 88175; G0145

== ENCOUNTER 2025-02-27 01:30 | Emergency (ER) | payer BC, SELFPAY ==
[2025-02-27 01:31] VITALS: TEMP 36.6; BMI 37.3
[2025-02-27 01:35] VITALS: BP 147/80; PULSE 103; RESP 16; O2SAT 100
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
[2025-02-27 02:36] LABS: Hematocrit 33.9 % (37-47); Hemoglobin 11.7 g/dL (12.0-15.0); Immature Granulocytes Count 0.020 X10^3/uL (0.0-0.0); Mean Corp Hgb Conc 34.5 g/dL (32-36); Mean Corpuscular Volume 83.5 fL (81-99); Mean Platelet Vol. 9.5 fl (6.2-12.0); NRBC Flagged by Analyzer 0 % (0-5); Platelet Count 217 K/mm3 (150-450); RBC Distribution Width CV 13.9 % (11.6-14.6); RBC Distribution Width SD 42.0 fl (35.1-43.9); Red Blood Count 4.06 M/mm3 (4.2-5.4); White Blood Count 7.8 K/mm3 (4.4-11.0)
[2025-02-27] MEDS: 0.9% Normal Saline (1000mL) 1,000 ML 999 ML IV (02:41)
--- OUTSIDE RECORDS SUMMARY | 2025-02-27 02:51 | XMS RPT_ITS | CCD ---
Author Organization [facility] Care Team Providers Care Lens Mounter Name Role Phone IGNACIO Mahmood Primary Care Provider IGNACIO Mahmood Referring Provider Dr. Jennifer Carr Attending Provider Dr. Rubina Rg Attending Provider [phone] Bart BECKER, Cuca Guzmán Unavailable Bart BECKER, Cuca Guzmán Unavailable Dr. Kyara Raygoza MD Unavailable Destiny LOMAX, Manda Nye Unavailable Filiberto SWIMMING POOL SALESPERSON, Annette Unavailable Leobardo LOMAX, Jace Montgomery Unavailable Eugene SWIMMING POOL SALESPERSON, Chantelle Nye Unavailable Unavailable Cheko LOMAX, Jone Rodríguez Unavailable Felecia PA-C, Mariah Hernandez Unavailable PHOTOGRAMMETRIC STEREO COMPILER-C, Quinton Dangelo Unavailable Richert SWIMMING POOL SALESPERSON, Callie L Unavailable Unavailab le Narinder SWIMMING POOL SALESPERSON, Manda Vargas Unavailable Unavailab le Willie SWIMMING POOL SALESPERSON, Kyara Garza Unavailable Unavailab le Vess SWIMMING POOL SALESPERSON, Estrellita Proctor Unavailable Unavailable Aquiles WEINJennifer Unavailable Unavailkajal e Unavailable Unavailable GENE RILEY Attending Unavailable JENNIFER DELEON Referring Unavailab JACE Mon Primary Care Unavailable IGNACIO Mahmood Primary Care Provider IGNACIO Mahmood Referring Provider GLEN Tyler Attending Provider Kari Valencia Unavailable Unavailable Care Physician, No Primary Primary Care Provider Unavailable Care Physician, No Primary Referring Provider Un available Dr. Jennifer Carr DO Attending Provider Shannon Allen CNM Attending Provider Care Physician, No Primary Referring Unava ilable Care Physician, No Primary Primary Care Unava ilable Nicole Tyler Attending Unavailable Care Physician, No Primary Primary Care Unava ilable Shannon Allen Attending Unavailable Care Physician, No Primary Referring Unava ilable Care Physician, No Primary Primary Care Unava ilable Jennifer Carr Attending Unavailabl e Care Physician, No Primary Referring Unava ilable Care Physician, No Primary Primary Care Unava ilable Jennifer Carr Attending Unavailabl e Allergies Allergy Classification Reported Allergen(s) Allergy Type Date of Onset Reaction(s) Facility (6 sources) Amoxicillin Drug Allergy 01-07-2022 [place] (6 sources) Clavulanate Drug Allergy 01-07-2022 [place] (7 sources) Penicillins; Translations: [Penicillins] Allergy to substance 01-07-2022 [place] (4 sources) Augmentin *PENICILLINS* [facility] (1 source) Amoxicillin Drug Allergy 02-21-2025 [facility] (1 source) Clavulanate Drug Allergy 02-21-2025 [facility] Medications Current Medications Medication Drug Class(es) Dates Sig (Normalized) Sig (Original) escitalopram 10 mg oral tablet (5 sources) Serotonin Reuptake Inhibitor Start: 02-02-2025 take 5 mg by mouth once daily Escitalopram Oxalate 10 mg tablet Active 5 mg PO daily February 02, 2025 12:00am Start: 10-07-2024 Lexapro 10 mg tablet ; 1/2 tablet daily x 1 week and then increase to 1 tab daily for 0 days Quantity: 30 {Tablet} Refills: 1 Ordered: 07-Oct-2024 EUGENIO Arriaga Start: 07-Oct-2024 Magnesium Chelate, Malate 125 mg magnesium capsule (3 sources) Start: 02-02-2025 Magnesium Chelate, Malate 125 mg magnesium capsule Active 360 mg PO DAILY February 02, 2025 12:00am Mv-Mn 351-[id number]-[id number]-Dha-Epa-Fi sh 180 mcg-35 mg- 25 mg-5 mg tablet,chewable (3 sources) Start: 12-20-2021 Mv-Mn 842-Tq-At3-Dha-Ep a-Fish 180 mcg-35 mg- 25 mg-5 mg tablet,chewable Active {tbl} PO December 20, 2021 12:00am ondansetron 4 mg disintegrating oral tablet (5 sources) Serotonin-3 Receptor Antagonist Start: 02-07-2025 take 1 tablet by mouth every six hours as needed for nausea and vomiting Ondansetron 4 mg tablet,disintegra ting Active 4 mg PO EVERY 6 HOURS as needed for nausea and vomiting 30 4 February 07, 2025 12:00am Start: 06-02-2023 End: 11-30-2023 take 1 tablet by mouth every six hours as needed for nausea and vomiting Ondansetron 4 mg tablet,disintegrating Discontinued 4 mg PO EVERY 6 HOURS as needed for nausea and vomiting 20 0 June 02, 2023 1:00am November 30, 2023 1:32pm Pnv No.[id number]-[id number]-Dha-Epa-Fi sh (3 sources) Start: 12-20-2021 Pnv No.178-Fa- Mq6-Woz-Peu-Fish Active TABLET PO December 19, 2021 11:00pm Start: 12-20-2021 Pnv No.178-Fa- Cq0-Mwc-Umv-Fish Active TABLET PO December 20, 2021 12:00am Completed/Discontinued Medications Medication Drug Class(es) Dates Sig (Normalized) Sig (Original) amoxicillin 500 mg oral capsule (12 sources) Penicillin-class Antibacterial Start: 03-31-2017 End: 04-10-2017 take 1 capsule by mouth three times daily Amoxicillin 500 MG Oral Capsule ; 1 Capsule three times daily for 10 days Quantity: 30 {Capsule} Refills: 0 Ordered: 31-Mar-2017 EUGENIO Izquierdo Start: 31-Mar-2017 End: 10-Apr-2017 Status: Inactive Start: 05-20-2016 End: 05-30-2016 take 1 tablet by mouth twice daily Amoxicillin 500 MG Oral Tablet ; 1 Tablet two times daily for 10 days Quantity: 20 {Tablet} Refills: 0 Ordered: 20-May-2016 ALYSON Schaeffer Start: 20-May-2016 End: 30-May-2016 Status: Inactive Start: 09-29-2011 End: 10-13-2011 take 1 capsule by mouth three times daily AMOXICILLIN, 500MG (Oral Capsule) ; 1 (one) Capsule three times daily for 14 days Quantity: 42 {Capsule} Refills: 0 Ordered: 29-Sep-2011 EUGENIO Izquierdo Start: 29-Sep-2011 End: 13-Oct-2011 Status: Inactive amoxicillin 875 mg / clavulanate 125 mg oral tablet (8 sources) Penicillin-class Antibacterial Start: 08-11-2018 End: 08-13-2018 take 1 tablet by mouth twice daily at mealtime Augmentin 875-125 MG Oral Tablet ; 1 Tab two times daily for 10 days Quantity: 20 {Tablet} Refills: 0 Ordered: 13-Aug-2018 EUGENIO Arriaga Start: 11-Aug-2018 End: 13-Aug-2018 Status: Inactive Comments: Take with food Start: 07-07-2017 End: 07-17-2017 take 1 tablet by mouth twice daily Amoxicillin-Pot Clavulanate 875-125 MG Oral Tablet ; 1 (one) Tablet two times daily for 10 days Quantity: 20 {Tablet} Refills: 0 Ordered: 07-Jul-2017 EUGENIO Izquierdo Start: 07-Jul-2017 End: 17-Jul-2017 Status: Inactive Comment on above: Take with food ascorbic acid 500 mg / ferrous sulfate 525 mg / folic acid 0.8 mg extended release oral tablet (3 sources) Vitamin C Start : 11-29 End: 03-11 Ferrous Zwzekci-Y-Nggsh Acid 105 mg iron- 500 mg-800 mcg tablet extended release Discontinued 1 {tbl} PO DAILY November 30, 2023 12:00am March 11, 2024 3:27pm administer on an empty stomach azithromycin 250 mg oral tablet (4 sources) Macrolide Antimicrobial Start : 11-24 End: 04-14 ZITHROMAX Z-SHANE, 250MG (Oral Tablet) ; 2 (two) Tabs day one, then one daily for 4 days for 0 days Quantity: 1 {Z-pack} Refills: 0 Ordered: 14-Apr-2013 VARINDER Kwanfer Start: 25-Nov-2011 End: 14-Apr-2013 Status: Inactive calcium carbonate 250 mg / magnesium carbonate 300 mg oral tablet (3 sources) Start : 11-29 End: 03-11 Calcium Carb-Magnesium Carb 250-300 mg tablet Discontinued 1 {tbl} PO DAILY November 30, 2023 12:00am March 11, 2024 3:27pm cephalexin 500 mg oral capsule (4 sources) Cephalosporin Antibacterial Start : 11-30 End: 12-10 take 1 capsule by mouth three times daily CEPHALEXIN, 500MG (Oral Capsule) ; 1 Capsule three times daily for 10 days Quantity: 30 {Capsule} Refills: 0 Ordered: 11-Dec-2011 VARINDER Knight Start: 01-Dec-2011 End: 11-Dec-2011 Status: Inactive cholecalciferol 0.01 mg oral capsule (3 sources) Vitamin D Start : 03-11 End: 02-02 take 1 capsule by mouth once daily Cholecalciferol (Vitamin D3) 10 mcg (400 unit) capsule Discontinued 10 ug PO daily March 11, 2024 12:00am February 02, 2025 10:48am citalopram 20 mg oral tablet (4 sources) Serotonin Reuptake Inhibitor Start : 08-10 End: 08-11 take 0.5 tablet by mouth once daily, then take 1 tablet by mouth once daily Citalopram Hydrobromide 20 MG Oral Tablet ; 1/2 Tablet daily x 1 week and then increase to 1 tablet daily for 0 days Quantity: 30 {Tablet} Refills: 1 Ordered: 11-Aug-2018 Start: 10-Aug-2017 End: 11-Aug-2018 Status: Inactive doxycycline hyclate 100 mg oral tablet (4 sources) Tetracycline-class Drug Start : 08-13 End: 08-23 take 1 tablet by mouth twice daily Doxycycline Hyclate 100 MG Oral Tablet ; 1 (one) Tablet BID for 10 days Quantity: 20 {Tablet} Refills: 0 Ordered: 13-Aug-2018 EUGENIO Arriaga Start: 13-Aug-2018 End: 23-Aug-2018 Status: Inactive Comments: Take each dose with full glass of water. Comment on above: Take each dose with full glass of water. Ethinyl Estradiol / norgestimate (4 sources) Progestin, Estrogen Start : 08-10 End: 08-11 take 1 tablet by mouth once daily Sprintec 28 0.25-35 MG-MCG Oral Tablet ; 1 (one) Tablet daily for 0 days Quantity: 1 {Package} Refills: 11 Ordered: 11-Aug-2018 Start: 10-Aug-2017 End: 11-Aug-2018 Status: Inactive fluconazole 150 mg oral tablet (6 sources) Azole Antifungal Start : 12-27 End: 12-20 Fluconazole 150 mg tablet Discontinued 150 mg PO .COMPLEX 2 0 December 27, 2020 12:00am December 20, 2021 2:16pm 150 mg PO take one po now and repeat in 3 days ibuprofen 600 mg oral tablet (6 sources) Nonsteroidal Anti-inflammatory Drug Start : 01-07 End: 05-12 take 1 tablet by mouth every six hours as needed for pain Ibuprofen 600 mg tablet Discontinued 600 mg PO EVERY 6 HOURS as needed for pain 20 0 January 07, 2022 12:00am May 12, 2023 10:35am medroxyPROGESTERone acetate 10 mg oral tablet (6 sources) Progestin Start : 12-27 End: 01-06 take 1 tablet by mouth once daily Medroxyprogesterone 10 mg tablet Discontinued 10 mg PO daily 10 10 0 December 27, 2020 12:00am January 05, 2021 12:00am January 06, 2021 12:01am methylPREDNISolone 4 mg oral tablet (4 sources) Corticosteroid Start : 09-08 End: 09-14 MEDROL (SHANE), 4MG (Oral Tablet) ; 1 Tablet as directed on pack for 6 days Quantity: 1 {dose_pack} Refills: 0 Ordered: 09-Sep-2011 VARINDER Trevino Start: 09-Sep-2011 End: 15-Sep-2011 Status: Inactive miSOPROStol 0.2 mg oral tablet (9 sources) Prostaglandin E1 Analog Start : 05-27 End: 06-02 take 1 tablet by mouth at bedtime Misoprostol (Cytotec) 200 mcg tablet Discontinued 1000 ug PO after meals and at bedtime 5 0 May 27, 2023 1:00am June 02, 2023 2:07pm Start: 01-07-2022 End: 05-12-2023 take 1 tablet by mouth at bedtime Misoprostol (Cytotec) 200 mcg tablet Discontinued 600 ug PO after meals and at bedtime 3 0 January 07, 2022 12:00am May 12, 2023 10:35am naproxen 500 mg oral tablet (4 sources) Nonsteroidal Anti-inflammatory Drug Start: 09-09-2011 End: 04-14-2013 take 1 tablet by mouth twice daily NAPROXEN, 500MG (Oral Tablet) ; 1 Tablet two times daily for 0 days Quantity: 60 {Tablet} Refills: 5 Ordered: 14-Apr-2013 VARINDER Kwan Start: 09-Sep-2011 End: 14-Apr-2013 Status: Inactive raNITIdine 150 mg oral tablet (4 sources) Histamine-2 Receptor Antagonist Start: 07-16-2016 End: 03-31-2017 take 1 tablet by mouth twice daily RaNITidine HCl 150 MG Oral Tablet ; 1 (one) Tablet Tablet BID for 0 days Quantity: 60 {Tablet} Refills: 1 Ordered: 31-Mar-2017 VARINDER Min Start: 16-Jul-2016 End: 31-Mar-2017 Status: Inactive sertraline 50 mg oral tablet (4 sources) Serotonin Reuptake Inhibitor Start: 06-23-2017 End: 08-10-2017 take 1 tablet by mouth once daily Sertraline HCl 50 MG Oral Tablet ; 1 (one) Tablet daily for 0 days Quantity: 30 {Tablet} Refills: 1 Ordered: 10-Aug-2017 EUGENIO Arriaga Start: 23-Jun-2017 End: 10-Aug-2017 Status: Inactive sucralfate 1000 mg oral tablet (4 sources) Aluminum Complex Start: 12-08-2011 End: 04-14-2013 take 1 tablet by mouth before mealtime CARAFATE, 1GM (Oral Tablet) ; 1 Tab before meals and bed for 0 days Quantity: 40 {Tab} Refills: 0 Ordered: 14-Apr-2013 VARINDER Kwan Start: 08-Dec-2011 End: 14-Apr-2013 Status: Inactive SUMAtriptan 100 mg oral tablet (4 sources) Serotonin-1b and Serotonin-1d Receptor Agonist Start: 04-14-2013 End: 08-08-2015 SUMATRIPTAN SUCCINATE, 100MG (Oral Tablet) ; 1 tablet Tablet @ onset of h.a for 0 days Quantity: 9 {Tablet} Refills: 1 Ordered: 08-Aug-2015 VARINDER Kwan Start: 14-Apr-2013 End: 08-Aug-2015 Status: Inactive Comments: May repeat in 2 hours Comment on above: May repeat in 2 hour s triamcinolone acetonide 0.25 mg/ml topical cream (4 sources) Corticosteroid Start: 05-29-2010 End: 04-14-2013 TRIAMCINOLONE ACETONIDE, 0.025% (External Cream) ; 1 (one) application(s) four times daily for 0 days Quantity: 80 {gram(s)} Refills: 2 Ordered: 14-Apr-2013 VARINDER Kwan Start: 29-May-2010 End: 14-Apr-2013 Status: Inactive Problems Active Problems Problem Classification Problem Date Documented Da te Episodic/Chronic Abdominal pain (4 sources) Right upper quadrant pain; Translations: [Right upper quadrant pain] 10-07-2024 Episodic Acute bronchitis (4 sources) Acute bronchitis; Translations: [Acute bronchitis, unspecified] 11-25-2011 Episodic Administrative/social admission (8 sources) Issue of repeat prescriptions 04-14-2013 Episodic Allergic reactions (4 sources) Acute eczema; Translations: [Dermatitis, unspecified] 05-29-2010 Episodic Anxiety disorders (20 sources) Anxiety; Translations: [Anxiety disorder, unspecified] Onset: 5 08-24-2023 Chronic Comment on above: escitalopram Bacterial infection; unspecified site (4 sources) Streptococcus infection in conditions classified elsewhere and of unspecified site, streptococcus, unspecified 09-16-2011 Episodic Esophageal disorders (12 sources) Gastroesophageal reflux disease; Translations: [Gastro-esophageal reflux disease without esophagitis] 08-24-2023 Chronic Gastritis and duodenitis (8 sources) Viral gastritis; Translations: [Gastritis, unspecified, without bleeding] 08-24-2023 Episodic Immunizations and screening for infectious disease (14 sources) Exposure to streptococcal pharyngitis; Translations: [Contact with and (suspected) exposure to other bacterial communicable diseases] Onset: 5 05-20-2016 Episodic Comment on above: Only anticardiolipin IgA present-per MFM not problematic. ASA 81mg only Inflammation; infection of eye (except that caused by tuberculosis or sexually transmitteddisease) (4 sources) Uveitis; Translations: [Unspecified iridocyclitis] 10-15-2011 Episodic Influenza (8 sources) Influenza; Translations: [Influenza due to unidentified influenza virus with other respiratory manifestations] 08-04-2016 Episodic Intestinal infection (4 sources) Viral gastroenteritis; Translations: [Viral intestinal infection, unspecified] 08-08-2015 Episodic Menstrual disorders (20 sources) Irregular periods; Translations: [Irregular menstruation, unspecified] Chronic Mood disorders (17 sources) Depressive disorder; Translations: [Depression] Chronic Comment on above: mild, not being wenceslao mati with medication Nausea and vomiting (4 sources) Vomiting; Translations: [Vomiting, unspecified] 12-08-2011 Episodic Other complications of (7 sources) Maternal obesity complicating , childbirth and the puerperium, antepartum; Translations: [Obesity complicating , unspecified trimester] 02-02-2025 Chronic Comment on above: HgbA1c Other complications of (1 source) Obesity complicating , unspecified trimester; Translations: [Obesity complicating , unspecified trimester] Onset: 5 Chronic Other complications of (18 sources) High risk ; Translations: [Supervision of high risk , unspecified, unspecified trimester] 05-12-2023 Episodic Comment on above: , EZRA 09/16/25, P Sania Randle, Carlos PRR , EZRA 01/04/ 4 boy beau Carlos , EZRA 07/18/22, Spouse Carlos Other complications of (12 sources) RhD negative; Translations: [Other specified related conditions, unspecified trimester] 05-21-2023 Episodic Comment on above: rhogam and 28 weeks and prn for bleeding. Other complications of (3 sources) Supervision of high risk , unspecified, unspecified trimester; Translations: [Supervision of unspecified high-risk ] Onset: 5 05-18-2023 Episodic Other complications of (1 source) Other specified related conditions, unspecified trimester; Translations: [Other specified related conditions, unspecified trimester] Onset: 5 Episodic Other complications of (1 source) Supervision of with other poor reproductive or obstetric history, unspecified trimester; Translations: [Supervision of with other poor reproductive or obstetric history, unspecified trimester] Onset: 5 Episodic Other female genital disorders (16 sources) H/O: miscarriage; Translations: [Recurrent loss] 05-18-2023 Episodic Comment on above: x2 miscarriage was chhaya y in Feb 2021 Other female genital disorders (6 sources) Recurrent loss; Translations: [Recurrent loss without current ] Episodic Comment on above: hcg x2, if rising wi ll obtain formal us in 1-2 weeks. 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; Translations: [Personal history of other diseases of the nervous system and sense organs] 07-20-2013 Episodic Other non-traumatic joint disorders (12 sources) Unspecified polyarthropathy or polyarthritis, site unspecified 12-12-2011 Chronic Other nutritional; endocrine; and metabolic disorders (20 sources) Body mass index 30+ - obesity; Translations: [Body mass index (BMI) 32.0-32.9, adult] 08-24-2023 Chronic Other nutritional; endocrine; and metabolic disorders (2 sources) Obesity, unspecified; Translations: [Obesity, unspecified] 05-18-2023 Chronic Other and delivery including normal (20 sources) ; Translations: [Encounter for supervision of normal , unspecified, unspecified trimester] 05-18-2023 Episodic Comment on above: JV- 01/22/24 elects NIPT with Gen govind, declined carrier gbs negative. discus sed genetic & carrier testing. planning a home with Meme Ortiz. co-care patient., nl GCT discussed NIPT & Car rier testing Other screening for suspected conditions (not mental disorders or infectious disease) (1 source) Encounter for screening for malignant neoplasm of cervix; Translations: [Encounter for screening for malignant neoplasm of cervix] Onset: 5 Episodic Other upper respiratory infections (16 sources) Sinusitis; Translations: [Chronic sinusitis, unspecified] 08-13-2018 Chronic Other upper respiratory infections (20 sources) Acute bacterial sinusitis; Translations: [Acute sinusitis, unspecified] 08-04-2016 Episodic Otitis media and related conditions (8 sources) Acute suppurative otitis media; Translations: [Acute suppurative otitis media without spontaneous rupture of ear drum, right ear] 04-30-2015 Episodic Polyhydramnios and other problems of amniotic cavity (3 sources) Oligohydramnios; Translations: [Oligohydramnios, third trimester, not applicable or unspecified] 02-01-2024 Episodic Residual codes; unclassified (1 source) 8 weeks gestation of ; Translations: [8 weeks gestation of ] Onset: 5 Episodic Residual codes; unclassified (1 source) Unspecified blood type, Rh negative; Translations: [Unspecified blood type, Rh negative] Onset: 5 Episodic Spondylosis; intervertebral disc disorders; other back problems (8 sources) Low back pain; Translations: [Lumbago] 08-24-2023 Episodic Spontaneous (14 sources) with abortive outcome; Translations: [Complete or unspecified spontaneous without complication] Episodic Comment on above: 3 mm lining Unclassified (4 sources) Unspecified Diagnosis 08-04-2016 Unclassified (4 sources) Follow up for chronic condition - The patient is here for follow-up of anxiety (Is feeling more depression now.). The patient always takes the prescribed medications. No side effects noted. The patient has an active lifestyle but no regular exercise program. The patient's dietary compliance is fairly good usually adhering to recommendations. The patient states that breathing effort is stable, there is no recent angina or dyspnea, there are no vision changes or weakness, weight has increased (up 7lbs since 03/31/2017; up 20 pounds in 1 year - doesn't feel like lifestyle has contributed to this; eating less recently and exercising regularly x 1 month), depression has worsened (feels like the sertraline is not helping; did try increasing it to 75mg for 1.5 weeks without improvement; emotional, angry, crying, sleeps a lot, weight gain) and headaches have been noticed occasionally. Note for Chronic condition follow-up: Has a roomate but doesn't really interact a lot with her. Some loneliness but sisters are nearby. 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 08-10-2017 Unclassified (4 sources) Persistent vomiting - Pt here again today because she is still vomiting since her hospital stay in October. She was seen here in office on 11/25/11 for Bronchitis and treated with zithromax and was no better. Had cxr which were clear and was then put on cephalexion. Pt still coughing and vomiting although pt does not have to cough before she vomits She will vomit maybe 2-3 times a day. She has no fever but appetite down and even though she is vomiting she is gaining weight. Gained 3# from last visit. Pt is active. Will vomit and continue on with whatever she was doing.Pt also stastes that her right ankle and knee will swell and be painful. Had strep and got this pain after her strep infection. That was back in May and she is stil having joint problems.Sx began when she was on high dose solumedrol for optic neuritis. 12-08-2011 Viral infection (8 sources) Varicella; Translations: [Varicella without complication] Onset: 2 08-24-2023 Episodic Past or Other Problems Problem Classification Problem Date Documented Da te Episodic/Chronic Other complications of (2 sources) Patient encounter status; Translations: [ with inconclusive viability, not applicable or unspecified] 05-18-2023 Episodic Other complications of (2 sources) with inconclusive viability, not applicable or unspecified; Translations: [Encounter for routine screening for malformation using ultrasonics] 05-18-2023 Episodic Unclassified (3 sources) Cold Symptoms - Symptoms include sneezing, nasal congestion, runny nose, ear pain (right ear), ear fullness, sore throat and productive cough, but do not include fever. The onset was sudden 4 day(s) ago. The symptoms occur constantly. The patient describes this as moderate in severity and unchanged. Note for Upper respiratory infection: Came home from [place] this past weekend. Also has liquid diarrha, nausea and vomiting. reviewed by [facility] 08-24-2023 Unclassified (4 sources) Cold Symptoms - Symptoms include nasal congestion, runny nose, ear pain (both - left worse), dry cough and headache, but do not include sore throat, scratchy throat or fever. The onset was gradual 4 day(s) ago. The symptoms occur constantly. The patient describes this as moderate in severity and worsening. Current treatment includes acetaminophen. Risk factors do not include child in daycare or smoking. The patient has not been exposed to an individual with a cough, an individual with an upper respiratory infection, an individual with similar symptoms or an individual with strep. Note for Upper respiratory infection: She also mentioned that she has been having back pain. Fell down the stairs and landed on back. Had been exercising so she stopped that without improvement. Some improvement since seeing neli who is a chiropractor. 08-11-2018 Unclassified (4 sources) Cold Symptoms - Symptoms include sore throat, fever, chills, general malaise and headache (dizziness, and upset stomach), but do not include sneezing, nasal congestion, runny nose, ear pain or dry cough. The onset was sudden 2 day(s) ago. The symptoms occur constantly. The patient describes this as severe and unchanged. The patient is not currently being treated for this problem. Risk factors do not include smoking. The patient has been exposed to an individual with strep (over a month ago). Medical history includes recurrent strep pharyngitis, but patient denies history of seasonal allergies, tonsillectomy or recurrent ear infections. 03-31-2017 Unclassified (4 sources) Cold Symptoms - Symptoms include runny nose, sore throat, dry cough, fever and chills, but do not include ear pain. The onset was sudden 1 day(s) ago. The symptoms occur constantly. The patient describes this as moderate in severity and worsening. Current treatment includes acetaminophen (none this am). The patient has been exposed to an individual with similar symptoms (is in school so possibly). Medical history includes seasonal allergies and recurrent strep pharyngitis. Note for Upper respiratory infection: Pt also mentioned that she is doing great on meds she was started on at last appt. 08-04-2016 Unclassified (4 sources) Abdominal pain - The onset of the abdominal pain has been gradual and has been occurring in an intermittent pattern for 6 weeks. The course has been increasing. The pain is described as a moderate dull ache (tenderness). The pain is located in the epigastrium and does not radiate. The symptoms have no aggravating factors but are relieved by vomiting. The symptoms have been associated with diarrhea (soft, loose stool-not diarrhea), heartburn, nausea and vomiting (every night during the night), while the symptoms have not been associated with constipation, dark urine or fever. Note for Abdominal pain: Patient has been having increased symptoms of abdominal pain and is vomiting once every night. Patient reports she has been under a lot of stress recently and feels this may be the cause of her symptoms. 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 Feels overwhelmed. Very emotional. Functioning ok. Family and friends have noticed. Mind races at night resulting in her having trouble sleeping. 07-16-2016 Unclassified (3 sources) Menstrual problems - The menstrual problems are characterized as heavy menses and irregular menses and have been occurring for 3 years. Note for Menstrual problems: -Seen in 2014 at age 13 for heavy menses. She had a course of OCP but has not had them for the past year. She would like to resume as periods were much maintenance scheduler and cramping was better when taking them. Misses school on the first day of her period usually due to the cramping. 07-03-2016 Unclassified (3 sources) [ADDITIONAL REASON] Vomiting - Symptoms include nausea and vomiting. Onset was sudden 12 hour(s) ago. Note for Vomiting: -Threw up twice during the night. She has some nausea but no diarrhea. Her mom thought that her head felt warm. She missed school and needs a note. + ill contacts at school. 07-03-2016 Unclassified (4 sources) Cold Symptoms - Symptoms include nasal congestion, purulent discharge, ear pain (left), sore throat, hoarseness, dry cough (from PND), general malaise and headache, but do not include fever. The onset was gradual 2 week(s) ago. The symptoms occur constantly. The patient describes this as moderate in severity and worsening. Current treatment includes non-prescription cold medication and acetaminophen. Risk factors do not include smoking. The patient has been exposed to an individual with similar symptoms (various family members ill with strep and flu). 10-16-2015 Unclassified (4 sources) Vomiting - Symptoms include nausea, vomiting and abdominal pain (middle; improves temporarily after vomiting). Emesis is characterized as bilious. Onset was gradual 3 day(s) ago. The symptoms occur intermittently. The patient describes this as moderate in severity and unchanged. Associated symptoms do not include fever, diarrhea or constipation. The patient is not currently being treated for this problem. This problem has not been previously evaluated. This problem has not been previously treated. Note for Vomiting: Eating but it is decreased. Drinking well. Vomited last in the night. Family members with similar symptoms. 08-08-2015 Unclassified (4 sources) Cold Symptoms - Symptoms include nasal congestion, purulent discharge, ear pain, ear fullness, sore throat, hoarseness, fever, chills, general malaise and headache, but do not include sneezing, runny nose, dry cough or facial pain. The onset was gradual 8 day(s) ago. The symptoms occur intermittently. The patient describes this as moderate in severity and worsening. Current treatment includes cough suppressants and acetaminophen. Risk factors do not include smoking. The patient has not been exposed to an individual with similar symptoms. Medical history includes seasonal allergies (possibly) and recurrent strep pharyngitis, but patient denies history of asthma or recurrent ear infections. Note for Upper respiratory infection: Pt. has a rash to her abdomen and shoulder - first noted this AM - does not itch at all, no drainage, just there. Pt. was vomiting on Thursday. Pt. also c/o episodes of vertigo and lightheadedness. 04-30-2015 Unclassified (4 sources) Sore throat - The onset of the sore throat has been gradual and has been occurring in a persistent pattern for 2 days (Awoke yesterday morning with scratchy throat. Seemed little more painful last night than it is today.). The course has been gradually worsening. The sore throat is described as mild to moderate. Symptoms include sore throat, headache (slight h/a) and nasal congestion (and having a lot of drainage down back of throat. Had so much drainage today that she vomited after coughing; it was mucousy drainage with red streaks through it), but do not include fever, cough or ear pain. The symptoms are aggravated by swallowing and talking. Relieving factors include acetaminophen (but has not really helped much). Note for Sore throat: Was at [facility] over the weekend. Pt's mom is with her and also mentions that pt has very heavy periods with lots of cramping. May have a period once every 2 months or 2 every month. Weapiness around her menses. Missing a lot of school because of this. Goes through pad and tampon within an hour. 2 older sisters started on control for menses related issues around her age. 10-10-2014 Unclassified (4 sources) Cold Symptoms - Symptoms include nasal congestion, runny nose (mostly clear nasal drainage), sore throat and headache, but do not include fever. The onset was gradual 4 day(s) ago. The symptoms occur constantly. The patient describes this as moderate in severity and worsening. The patient is not currently being treated for this problem. The patient has not been exposed to an individual with similar symptoms. Note for Upper respiratory infection: Eyes have been watering. A couple of weeks ago she started with similar symptoms as she had with optic neuritis in the past but they resolved. Was supposed to continue to f/u with ophthalmology but hasn't. 07-20-2013 Unclassified (4 sources) Cold Symptoms - Symptoms include nasal congestion, runny nose, ear pain, sore throat, fever (low grade) and headache, but do not include sneezing or dry cough. The onset was sudden 6 day(s) ago. The symptoms occur constantly. The patient describes this as moderate in severity and improving (Thought she was getting better until today.). Current treatment includes non-prescription cold medication (emergen-C) and acetaminophen. The patient has been exposed to an individual with similar symptoms (mom). Medical history includes recurrent strep pharyngitis, but patient denies history of seasonal allergies, recurrent sinusitis, asthma, tonsillectomy or recurrent ear infections. Note for Upper respiratory infection: Stomach complaints as well - some pain and nausea. No vomiting or diarrhea. 04-14-2013 Unclassified (4 sources) Rash - The onset of the rash has been sudden and has been occurring in a persistent pattern for 1 day. The course has been increasing. The rash is characterized as red and raised above the skin. It spread to the face, the back, the upper extremity and the lower extremity. There has been associated itching. There has been associated fever (Had a fever on Thursday but doesn't have on today.). Note for Rash: Says that she started with a low grade fever on Thursday and then the rash started yesterday. Goes to [employer] and the chicken pox has been going around there. Has been taking meloxicam for about 10 days now so wasn't sure if that was related or not. Thinks she was vaccinated [facility] the [facility] - has shot record with her though and it doesn't have anything listed under varicella. 04-23-2012 Unclassified (4 sources) Sore throat - The onset of the sore throat has been acute and has been occurring in an increasing pattern for 3 days. The course has been constant. The sore throat is described as moderate. The sore throat was not precipitated by chest congestion or sinus infection. Symptoms include sore throat, fever (felt warm the other day), headache and cough, but do not include ear pain. The symptoms are aggravated by eating, swallowing and talking. There are no relieving factors. Medical history includes recurrent strep pharyngitis, but does not include seasonal allergies or recurrent sinusitis. Note for Sore throat: Also has a stomachache. 02-05-2012 Unclassified (4 sources) Cough - The onset of the cough has been acute and has been occurring in a persistent pattern for 4 weeks. The course has been constant. The cough is characterized as productive of white sputum. There is no fever. Note for Cough: Becomes short of breath. Pt has been vomitting w coughing. Not using any cough meds. 11-25-2011 Unclassified (4 sources) Eye Symptoms - The onset of the symptoms has been acute and has been occurring in a persistent pattern for 1 week. The course has been worsening. The symptoms are described as moderate and involve the right eye. The symptoms are described as pain. Note for Eye Symptoms: Has been on Amoxicillin and is concerned symptoms are a reaction to rx. 10-15-2011 Unclassified (4 sources) Knee Pain - The onset of the knee pain has been acute and has been occurring in a persistent pattern for 1 week. The course has been increasing. The knee pain is moderate to severe in the right knee. The knee pain is characterized as a burning sensation. The knee pain is described as being located in the entire knee. The knee pain is aggravated by any movement. There were no relieving factors. The symptoms have been associated with giving way, instability and other joint complaints (bACK AROUND SILVANA her left elbow was also aching and swelling and she couldnt even straighten out her fingers. But mom states that has gotten better.), but have not been associated with fever. There were no previous diagnostic tests. Previous evalutations were completed by a chiropractor (states she has alot inflammation and maybe fluid behind the knee, he did exrays. Also had bw done.). There has been no previous surgeries. Assistive devices include crutch. 09-09-2011 Unclassified (4 sources) Rash - The onset of the rash has been sudden and has been occurring in a persistent pattern for 2 weeks. The course has been increasing (recent worsening in past 2-3 weeks). The rash is characterized as red and raised above the skin. The rash was first seen on the trunk (behind both knees). It spread to the entire body (mostly armpits,groin,knees. Mom would call it in the areas where you sweat,but starting to branch out). There has been associated itching. 05-29-2010 Unclassified (2 sources) Well adult female - The patient feels well with minor complaints (anxiety), has good energy level and is sleeping well. The first day of the last menstrual period was : (09/09/24). The current method of contraception is: condom-male. The patient has a balanced diet (has been trying to eat more balanced the past month) and has an inappropriate diet. The patient exercises weekly. The patient sleeps 8 hours per night. 10-07-2024 Unclassified (1 source) Vomiting - Symptoms include nausea and vomiting. Onset was sudden 12 hour(s) ago. Note for Vomiting: -Threw up twice during the night. She has some nausea but no diarrhea. Her mom thought that her head felt warm. She missed school and needs a note. + ill contacts at school. 07-03-2016 Unclassified (1 source) [ADDITIONAL REASON] Menstrual problems - The menstrual problems are characterized as heavy menses and irregular menses and have been occurring for 3 years. Note for Menstrual problems: -Seen in 2014 at age 13 for heavy menses. She had a course of OCP but has not had them for the past year. She would like to resume as periods were much maintenance scheduler and cramping was better when taking them. Misses school on the first day of her period usually due to the cramping. 07-03-2016 Results Test Name Value Interpretation Reference Range Facility Research Nurse Practitioner Office Visit Reporton 02-21-2025 Research Nurse Practitioner Office Visit Report [facility] [address], [address] [place] [address] OFFICE VISIT Date of Service: 02/21/25 MR#: [id number] Acct: [id number] Name: SHERRY CARREON Rep #: [id number] : 2000 Provider: GLEN David ams Age/Sex: 24/F Location: [facility] [place] Status: Signed Intake Vital Signs 02/07/25 08:11 02/21/25 13:19 Height 5 ft 7 in 5 ft 7 in Weight: 234 lb BMI 36.6 BP 139/88 H Intake Visit Reasons: recheck *per JV 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 Is patient in pain?: No Allergies amoxicillin (From Augmentin) Allergy (Intermediate, Verified 02/21/25 13:18) Hives clavulanic acid (From Augmentin) Allergy (Intermediate, Verified 02/21/25 13:18) Hives Penicillins Allergy (Intermediate, Verified 02/21/25 13:18) Hives Medications ???Medication ???Instructions ???Recorded ???Confirmed ???Type mv-mn 110-FA 180 mcg-om3 35 mg-dha tab PO 12/20/21 02/21/25 History 25 mg-epa 5 mg-fish oil chew tablet escitalopram oxalate 10 mg tablet 5 mg PO QDAY 02/02/25 02/21/25 Hi story magnesium chelate, malate 360 mg PO DAILY 02/02/25 02/21/25 History ondansetron 4 mg disintegrating 4 mg PO Q6H PRN nausea and 5 02/21/25 Rx tablet vomiting #30 tabs Last Menstrual Period: 12/10/24 : No PFSH PFSH Medical History Depression Oligohydramnios Headache Seasonal allergies Migraine Complete History of miscarriage, currently Supervision of high risk , antepartum Surgical History [place] teeth removed Family History Father Hypertension Grandmother Hypertension Aunt Hypertension Grandfather Cancer, Onset Age: 50 Paternal- stomach Mother FHx: migraine headaches Social History adopted: No household members: spouse and children housing: house number of children: 1 current occupational status: employed 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 current occupational exposures/hazards: No pets and animals: Yes (outside) pets and animals: dog(s) history of recent travel: No ([place]) sexually active: Yes Smoking Status: Never smoker alcohol intake: former details: social/occasional prior to substance use type: does not use well-balanced diet: about half the time caffeine: Yes (Occasional- ) Type: carbonated beverages Number of servings: 1 eating out: 1-3 times/week during the past year weight has: remained stable what type of physical activity do you participate in: none frequency: 1-2 times per week duration: 45-60 minutes/day suzanne/bahai: [employer] seatbelt use: always do you feel safe at home: Yes 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 Date Name GA/Weeks Outcome Route Bth Weight Gen Labor Lgth Anesthesia Del Locatn Provider FOB 03/05/21 4 spontaneous 01/14/22 6 spontaneous 01/22/24 Beau 41 live - full term 7#10oz Male epidural [facility] Jenifer Chakraborty Delivery Date: 01/14/22 Last Updated by: Rubina Rg MD no d and c required, cytotec given Delivery Date: 01/22/24 Last Updated by: Dee Krishnan see problem list for complications, IOL post dates HPI recheck *per JV Details: SHERRY CARREON is a 24 year old who presents for routine OB visit. OB Visit EZRA Calculator Estimated Delivery Date Method Current WG Current Estimate 10/01/25 Ultrasound #1 8w 2d Other Estimates 09/16/25 LMP (Certain) 10w 3d 10/03/25 Ultrasound #2 8w 0d Expected Delivery Route/Plan Labor Preferences- CB/BF classes: [] labor support person: [] labor intervention preferences: [] pain management options preferred: [] cut cord/dad catch: [] : [] PP control planned: [] discussed possible routes of delivery and associated risks: [] special requests: [] Specific Issue/Plans Covid status: [] Flu vaccine: [] Tdap vaccine: [] Rhogam: [] LARC form signed: [] Problem list reviewed and updated with the most current plan of care details and appropriate orders placed. Relevant counseling for the gestational age provided. Continue routine care and follow up unless otherwise noted in visit notes/problem list details Initial Weight: 237 lb Date -???-???-???-???-???-??? -???-???-???-???-???-??? - EGA Weight BP Urine (more content not included)... Normal [facility] PAP I-G w/rfx hrHPV-Aptimaon 02-09-2025 ADEQ Comment Normal . [facility] Comment on above: Order Comment: Rikki tena Comment: [id number] Specimen Comment: No. of containers..01 ThinPrep Vial Result Comment: Sati sfactory for evaluation. No endocervical component is identified. Performed By: #### M 100.2200, L7400.0353, L7000.1800 #### [facility] [address] [place], [place], [id number] COMM . Normal . [facility] Comment on above: Order Comment: Rikki tena Comment: [id number] Specimen Comment: No. of containers..01 ThinPrep Vial Performed By: #### M 100.2200, L7400.0353, L7000.1800 #### [facility] [address] [place], [place], [id number] COMMENT Comment Normal . [facility] Comment on above: Order Comment: Rikki tena Comment: [id number] Specimen Comment: No. of containers..01 ThinPrep Vial Result Comment: This liquid based ThinPrep(R) pap test was screened with the use of an image guided system. Performed By: #### M 100.2200, L7400.0353, L7000.1800 #### [facility] [address] [place], [place], [id number] DIAG Comment Normal . [facility] Comment on above: Order Comment: Speci men Comment: [id number] Specimen Comment: No. of containers..01 ThinPrep Vial Result Comment: NEGA TIVE FOR INTRAEPITHELIAL LESION OR MALIGNANCY. Performed By: #### M 100.2200, L7400.0353, L7000.1800 #### [facility] [address] [place], [place], [id number] HPV RFLX Comment Normal . [facility] Comment on above: Order Comment: Speci men Comment: [id number] Specimen Comment: No. of containers..01 ThinPrep Vial Result Comment: The HPV DNA reflex criteria were not met with this specimen result therefore, no HPV testing was performed. Performed at: - [address] [id number] Torpedo Specialist: Tessy Garcia MD, Phone: [phone] Performed By: #### M 100.2200, L7400.0353, L70.1800 #### [facility] [address] [place], [place], [id number] PAPSMR Comment Normal . [facility] Comment on above: Order Comment: Speci men Comment: [id number] Specimen Comment: No. of containers..01 ThinPrep Vial Result Comment: The Pap smear is a screening test designed to aid in the detection of premalignant and malignant conditions of the uterine cervix. It is not a diagnostic procedure and should not be used as the sole means of detecting cervical cancer. Both false-positive and false-negative reports do occur. Performed By: #### M 100.2200, L7400.0353, L7000.1800 #### [facility] [address] [place], [address] PERFORM Comment Normal . [facility] Comment on above: Order Comment: Speci men Comment: [id number] Specimen Comment: No. of containers..01 ThinPrep Vial Result Comment: Kendra Gómez, Spa Director/Finance (ASCP) Performed By: #### M 100.2200, L7400.0353, L7000.1800 #### [facility] [address] [place], [address] Chlamydia/GC AGUSTÍN aptimaon CHLAMY,NUC ACID Negative Normal Negative [facility] Comment on above: Performed By: #### M 100.2200, L7400.0353, L7000.1800 #### [facility] [address] [place], [address] GC BY NUC ACID Negative Normal Negative [facility] Comment on above: Result Comment: Perf ormed at: =G - [facility] [address] [id number] Torpedo Specialist: Tessy Garcia MD, Phone: [phone] Performed By: #### M 100.2200, L7400.0353, L7000.1800 #### [facility] [address] [place], [address] Urine Cultureon 02-08-2025 URC Culture exhibits no growth. Normal [facility] Comment on above: Performed By: #### M 100.2200, L7400.0353, L7000.1800 #### [facility] [address] [place], [address] Cervical or vagninal specime n microscopic examination by cytology stain (reported asOrdered By: Jennifer Oreilly on 02-07-2025 Cytology report Cyto stain Doc (Cvx/Vag) Comment . [facility] Comment on above: The Pap smear is a s creening test designed to aid in thedetection of premalignant and malignant conditions of theuterine cervix. It is not a diagnostic procedure andshould not be used as the sole means of detecting cervicalcancer. Both false-positive and false-negative reports dooccur. Chlamydia trachomatis rRNA d etection by probe and target amplification methodOrdered By: Jennifer Oreilly on 02-07-2025 C. trachomatis rRNA AGUSTÍN+probe Ql (Unsp spec) Negative Negative [facility] - CytologyOrdered By: Jennifer Oreilly on 02-07-2025 Spa Director/Finance Cyto stain Nom (Cvx/Vag) [ID] Comment . [facility] Comment on above: David Belle-Ab gutiérrez, Spa Director/Finance (ASCP) Laboratory - Miscellaneous t estsOrdered By: Jennifer Oreilly on 02-07-2025 Service comment (Unsp spec) [Interp] . . [facility] Neisseria gonorrhoeae nuclei c acid detection by amplified probe techniqueOrdered By: Jennifer Oreilly on 02-07-2025 N. gonorrhoeae DNA AGUSTÍN+probe Ql (Unsp spec) Negative Negative [facility] Comment on above: Performed at: =[address] [id number] Director: Tessy Garcia MD, Phone: [phone] No Panel InformationOrdered By: Jennifer Oreilly on 02-07-2025 Pap Smear Specimen Adequacy Comment . [facility] Comment on above: Satisfactory for yoselyn luation. No endocervical component is identified. Research Nurse Practitioner Office Visit Reporton 02-07-2025 Research Nurse Practitioner Office Visit Report [facility] [address], [address] [place] [address] OFFICE VISIT Date of Service: 02/07/25 MR#: [id number] Acct: [id number] Name: SHERRY CARREON Rep #: [id number] : 2000 Provider: Dr. 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 Is patient in pain?: No Allergies amoxicillin (From Augmentin) Allergy (Intermediate, Verified 02/07/25 08:09) Hives clavulanic acid (From Augmentin) Allergy (Intermediate, Verified 02/07/25 08:09) Hives Penicillins Allergy (Intermediate, Verified 02/07/25 08:09) Hives Medications ???Medication ???Instructions ???Recorded ???Confirmed ???Type mv-mn 110-FA 180 mcg-om3 35 mg-dha tab PO 12/20/21 02/07/25 History 25 mg-epa 5 mg-fish oil chew tablet escitalopram oxalate 10 mg tablet 5 mg PO QDAY 02/02/25 02/07/25 Hi story magnesium chelate, malate 360 mg PO DAILY 02/02/25 02/07/25 History Last Menstrual Period: 12/10/24 Zika: Zika virus screening: Negative : No PFSH PFSH Medical History Depression Oligohydramnios Headache Seasonal allergies Migraine Complete History of miscarriage, currently Supervision of high risk , antepartum Surgical History [place] teeth removed Family History Father Hypertension Grandmother Hypertension Aunt Hypertension Grandfather Cancer, Onset Age: 50 Paternal- stomach Mother FHx: migraine headaches Social History adopted: No household members: spouse and children housing: house number of children: 1 service: No current occupational status: employed 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 current occupational exposures/hazards: No pets and animals: Yes (outside) pets and animals: dog(s) history of recent travel: No ([place]) sexually active: Yes Smoking Status: Never smoker alcohol intake: former details: social/occasional prior to substance use type: does not use well-balanced diet: about half the time caffeine: Yes (Occasional- ) Type: carbonated beverages Number of servings: 1 eating out: 1-3 times/week during the past year weight has: remained stable what type of physical activity do you participate in: none frequency: 1-2 times per week duration: 45-60 minutes/day suzanne/bahai: [employer] seatbelt use: always do you feel safe at home: Yes 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 Date Name GA/Weeks Outcome Route Bth Weight Infant Gen Labor Lgth Anesthesia Del Locatn Provider FOB 03/05/21 4 spontaneous 01/14/22 6 spontaneous 01/22/24 Beau 41 live - full term 7#10oz Male epidural [facility] sheldon Chakraborty Delivery Date: 01/14/22 Last Updated by: Rubina Rg MD no d and c required, cytotec given Delivery Date: 01/22/24 Last Updated by: Dee Krishnan see problem list for complications, IOL post dates HPI *EST* NOB LMP 12/10, EZRA 09/16 Details: SHERRY CARREON is a 24 year old who presents for New OB visit. OB Visit EZRA Calculator Estimated Delivery Date Method Current WG Current Estimate 09/16/25 LMP (Certain) 8w 3d Comments: HIV: Urine Culture: Sequential Screen: NIPT Screen: Estimated Due Date: 09/16/25 Expected Delivery Route/Plan Labor Preferences- CB/BF classes: [] labor support person: [] labor intervention preferences: [] pain management options preferred: [] cut cord/dad catch: [] : [] PP control planned: [] discussed possible routes of delivery and associated risks: [] special requests: [] Specific Issue/Plans Covid status: [] Flu vaccine: [] Tdap vaccine: [] Rhogam: [] LARC form signed: [] Problem list reviewed and updated with the most current plan of care details and appropriate orders placed. Relevant counseling for the gestational age provided. Continue routine care and follow up unless otherwise noted in visit notes/problem list details Initial Weight: Not Recorded Date -???-???-???-???-???-??? -???-???-???-???-???-?? (more content not included)... Normal [facility] Urine cultureOrdered By: Jenifer Oreilly on 02-07-2025 Bacteria identified Cx Nom (U) Culture exhibits no growth. 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 Is patient in pain?: No Allergies amoxicillin (From Augmentin) Allergy (Intermediate, Verified 03/11/24 15:23) Hives clavulanic acid (From Augmentin) Allergy (Intermediate, Verified 03/11/24 15:23) Hives Penicillins Allergy (Intermediate, Verified 03/11/24 15:23) Hives Medications ???Medication ???Instructions ???Recorded ???Confirmed ???Type PNV 178-FA 180 mcg-om3 35 mg-dha tab PO 12/20/21 03/11/24 History 25 mg-epa 5 mg-fish oil chew tablet cholecalciferol (vitamin D3) 10 10 mcg PO QDAY 03/11/24 03/11/24 History mcg (400 unit) capsule : Yes PFSH Medical History Oligohydramnios Headache Seasonal allergies Migraine Complete History of miscarriage, currently Supervision of high risk , antepartum Surgical History [place] teeth removed Family History Father Hypertension Grandmother Hypertension Aunt Hypertension Grandfather Cancer, Onset Age: 50 Paternal Mother FHx: migraine headaches Social History adopted: No household members: spouse housing: house number of children: 0 current occupational status: employed 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 current occupational exposures/hazards: No pets and animals: Yes pets and animals: dog(s) history of recent travel: Yes ([place]) out of state: Yes out of country: No sexually active: Yes Smoking Status: Never smoker alcohol intake: former details: social/occasional prior to substance use type: does not use well-balanced diet: daily or most days caffeine: Yes Type: carbonated beverages Number of servings: 1 eating out: 1-3 times/week during the past year weight has: remained stable what type of physical activity do you participate in: other details: crossfit frequency: 1-2 times per week duration: 45-60 minutes/day suzanne/bahai: [employer] seatbelt use: always do you feel safe at home: Yes 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 Date Name GA/Weeks Outcome Route Bth Weight Gen Labor Lgth Anesthesia Del Locatn Provider FOB 03/05/21 4 spontaneous 01/14/22 6 spontaneous 01/22/24 Beau 41 live - full term Male epidural [facility] sheldon Carr Carlos Delivery Date: 01/14/22 Last Updated by: Rubina Rg MD no d and c required, cytotec given Delivery Date: 01/22/24 Last Updated by: Dee Krishnan see problem list for complications. Depression Screen PHQ-2/9 PHQ-2 Over the last 2 weeks, how often have you been bothered by any of the following problems? 1. Little interest or pleasure in doing things: several days 2. Feeling down, depressed, or hopeless: not at all Total score: 1 Post HPI Routine Follow-Up: Details: SHERRY CARREON is a 23 year old who presents for her post visit. Feeding: Both (all breastmilk. pt pumping and alternating between breast and bottle) Menses resumed: No [place] since delivery: Yes Emotional Support: Yes Last Pap:: 12/26 Control Method: none ROS Const Denies excessive sweating Card Reports system reviewed and no additional complaints, except as documented, Denies chest pain, Denies chest pain with activity, Denies edema, Denies leg edema and Denies palpitations Resp Reports system reviewed and no additional complaints, except as documented GI Reports system reviewed and no additional complaints, except as documented, Denies abdominal pain and Denies bloating Reports system reviewed and no additional complaints, except as documented, Denies difficulty voiding, Denies dysuria, Denies urinary frequency, Denies urinary incontinence, Denies urinary hesitancy, Denies urinary urgency, Denies vaginal discharge and Denies vaginal odor Musc Reports system reviewed (more content not included)... Normal [facility] Absolute lymphocyte countOrd ered By: Nicole Tyler on 05-20-2023 Lymphocytes Auto (Unsp spec) [#/Vol] 2.85 10*3/uL 0.83-4.51 [facility] Basophil percentageOrdered B y: Nicole Tyler on 05-20-2023 Basophils/100 WBC (Bld) 0.3 % 0-1 [facility] Eosinophils/100 WBC (Bld) 1.3 % 0-5 [facility] Neutrophils (Bld) [#/Vol] 8.5 10*3/uL 2.0-7.7 [facility] Neutrophils/100 WBC (Bld) 71.1 % 47-70 [facility] WBC (Bld) [#/Vol] 11.9 10*3/uL 4.4-11.0 [facility] Blood erythrocytes count (nu mber/volume)Ordered By: Nicole Tyler on 05-20-2023 RBC (Bld) [#/Vol] 4.52 10*6/uL 4.2-5.4 [facility] Blood hemoglobin measurement (mass/volume)Ordered By: Nicole Tyler on 05-20-2023 Hemoglobin (Bld) [Mass/Vol] 12.9 g/dL 12.0-15.0 [facility] Blood lymphocytes/100 leukoc ytesOrdered By: Nicole Tyler on 05-20-2023 Lymphocytes/100 WBC (Bld) 23.9 % 19-41 [facility] Blood monocytes/100 leukocyt esOrdered By: Nicole Tyler on 05-20-2023 Monocytes/100 WBC (Bld) 3.1 % 0-10 [facility] Blood platelet mean volumeOr dered By: Nicole Tyler on 05-20-2023 Platelet mean volume (Bld) [Entitic vol] 9.0 fL 6.2-12.0 [facility] Determination of erythrocyte mean corpuscular volume (MCV)Ordered By: Nicole Tyler on 05-20-2023 MCV (RBC) [Entitic vol] 87.6 fL 81-99 [facility] HIV 1 and HIV-2 antibody ass ay with HIV-1 p24 antigen detectionOrdered By: Nicole Tyler on 05-20-2023 HIV 1+2 Ab+HIV1 p24 Ag IA Ql Non-Reactive Nonreactive [facility] Hematocrit Auto (Bld) [Volum e fraction]Ordered By: Nicole Tyler on 05-20-2023 Hematocrit (Bld) [Volume fraction] 39.6 % 37-47 [facility] Laboratory - Hematology and Cell countsOrdered By: Nicole Tyler on 05-20-2023 Erythrocyte distribution width (RBC) [Entitic vol] 39.0 fL 35.1-43.9 [facility] Erythrocyte distribution width (RBC) [Ratio] 12.1 % 11.6-14.6 [facility] Immature granulocytes/100 WBC (Bld) 0.300 % 0.0-0.9 [facility] Comment on above: IG% - Immature Granu locytes (promyelocytes, myelocytes and metamyelocytes) > 1% indicates that a LEFT SHIFT is Present. MCH (RBC) [Entitic mass] 28.5 pg 27.0-32.0 [facility] Nucleated RBC/100 WBC (Bld) [Ratio] 0 % 0-5 [facility] MCHC Auto (RBC) [Mass/Vol]Or dered By: Nicole Tyler on 05-20-2023 MCHC (RBC) [Mass/Vol] 32.6 g/dL 32-36 [facility] No Panel InformationOrdered By: Nicole Tyler on 05-20-2023 Hepatitis B Surface Antigen Non-Reactive Nonreactive [facility] Hepatitis C Antibody Non-Reactive Nonreactive [facility] Comment on above: Non Reactive: < 0.8 Equivocal: >/= 0.8 to < 1.0 Reactive: >/= 1.0The CDC recommends that a reactive/equivocal HCV antibody result be followed up by the HCV Nucleic Acid Amplificationtest (260729) Rubella IgG Antibody Reactive Nonreactive [facility] Comment on above: Antibody Results Int erpretation of Immune Status Non Reactive Presumed Non-Immune Equivocal Equivocal Reactive Presumed Immune Platelets bldOrdered By: Josefina Tyler on 05-20-2023 Platelets (Bld) [#/Vol] 322 10*3/uL 150-450 [facility] Serum Treponema species anti body detectionOrdered By: Nicole Tyler on 05-20-2023 Treponema sp Ab Ql (S) Non-Reactive [facility] Serum or plasma choriogonado tropin detectionOrdered By: Nicole Tyler on 05-20-2023 HCG ( test) Ql 9188 mIU/mL <4 [facility] Comment on above: hCG levels with Gest ational AgeGestational Age hCG mIU/mL (IU/L)0.2 - 1 week 5 - 501-2 weeks 50 - 5002-3 weeks 100 - 38218-5 weeks 500 - 542449-2 weeks 1000 - 021976-2 weeks 96686 - 100,0006-8 weeks 80201 - 200,0002-3 months 24757 - 100,000 Chlamydia trachomatis rRNA d etection by probe and target amplification methodOrdered By: Nicole Tyler on 05-18-2023 C. trachomatis rRNA AGUSTÍN+probe Ql (Unsp spec) Negative Negative [facility] Culture, urineOrdered By: Natty Tyler on 05-18-2023 Bacteria identified Cx Nom (U) Culture exhibits no growth. [facility] Laboratory - Microbiology an d Antimicrobial susceptibilityOrdered By: Nicole Tyler on 05-18-2023 N. gonorrhoeae DNA AGUSTÍN+probe Ql (Unsp spec) Negative Negative [facility] Comment on above: Performed at: =[address] [id number] Director: Tessy Garcia MD, Phone: [phone] Serum or plasma choriogonado tropin detectionOrdered By: Nicole Tyler on 05-18-2023 HCG ( test) Ql 5280 mIU/mL <4 [facility] Comment on above: hCG levels with Gest ational AgeGestational Age hCG mIU/mL (IU/L)0.2 - 1 week 5 - 501-2 weeks 50 - 5002-3 weeks 100 - 23919-8 weeks 500 - 965844-0 weeks 1000 - 625685-6 weeks 79854 - 100,0006-8 weeks 13982 - 200,0002-3 months 12116 - 100,000 Dilute Loco's viper venom timeon 01-14-2022 dRVVT Coag (PPP) [Time] 41.4 s 0.0-47.0 [facility] Work Phone: No Panel Informationon 01-14 Anti-Cardiolipin IgM Antibody 9 MPL U/mL 0-12 [facility] Work Phone: Comment on above: Negative: <13 Indete rminate: 13 - 20 Low-Med Positive: >20 - 80 High Positive: >80 Thyroid Stimulating Hormone (TSH) 1.20 uIU/mL 0.358-3.74 [facility] Work Phone: Serum beta 2 glycoprotein 1 IgA antibody detectionon 01-14-2022 Beta 2 glycoprotein 1 IgA Ql (S) <9 0-25 [facility] Work Phone: Comment on above: Result Units: GPI Ig A unitsThe reference interval reflects a 3SD or 99th percentileinterval, which is thought to represent a potentiallyclinically significant result in accordance with theInternational Consensus Statement on the classificationcriteria for definitive antiphospholipid syndrome (APS). JThromb Haem 2006;4:295-306. Serum beta 2 glycoprotein 1 IgG antibody detectionon 01-14-2022 Beta 2 glycoprotein 1 IgG Ql (S) <9 0-20 [facility] Work Phone: Comment on above: Result Units: GPI Ig G unitsThe reference interval reflects a 3SD or 99th percentileinterval, which is thought to represent a potentiallyclinically significant result in accordance with theInternational Consensus Statement on the classificationcriteria for definitive antiphospholipid syndrome (APS). JThromb Haem 2006;4:295-306. Serum beta 2 glycoprotein 1 IgM antibody detectionon 01-14-2022 Beta 2 glycoprotein 1 IgM Ql (S) <9 0-32 [facility] Work Phone: Comment on above: Result Units: GPI Ig M unitsThe reference interval reflects a 3SD or 99th percentileinterval, which is thought to represent a potentiallyclinically significant result in accordance with theInternational Consensus Statement on the classificationcriteria for definitive antiphospholipid syndrome (APS). JThromb Haem 2006;4:295-306.Performed at: [facility] [address] [id number] Director: William Ponce MD, Phone: [phone] at: [email or web address] [id number] [place], [place] [id number] Director: Ben Graff PhD, Phone: [phone] Serum cardiolipin IgG antibo dy assay by immunoassay (units/volume)on 01-14-2022 Cardiolipin IgG IA Qn (S) < 9 GPL U/mL 0-14 [facility] Work Phone: Comment on above: Negative: <15 Indete rminate: 15 - 20 Low-Med Positive: >20 - 80 High Positive: >80 Serum or plasma cardiolipin IgA antibody assay (units/volume)on 01-14-2022 Cardiolipin IgA Qn 25 APL U/mL 0-11 [facility] Work Phone: Comment on above: Negative: <12 Indete rminate: 12 - 20 Low-Med Positive: >20 - 80 High Positive: >80 Serum or plasma choriogonado tropin detectionon 01-14-2022 HCG ( test) Ql 18 mIU/mL <4 [facility] Work Phone: Comment on above: hCG levels with Gest ational AgeGestational Age hCG mIU/mL (IU/L)0.2 - 1 week 5 - 501-2 weeks 50 - 5002-3 weeks 100 - 76504-7 weeks 500 - 254201-1 weeks 1000 - 977490-6 weeks 20459 - 100,0006-8 weeks 91941 - 200,0002-3 months 17754 - 100,000 Thin prep Papanicolaou smear with manual screeningon 01-14-2022 Thin prep Papanicolaou smear with manual screening 37.1 sec 0.0-47.6 [facility] Work Phone: Thin prep Papanicolaou smear with manual screening 1.14 Ratio 0.00-1.34 [facility] Work Phone: Thin prep Papanicolaou smear with manual screening 37.5 sec 0.0-51.9 [facility] Work Phone: Thin prep Papanicolaou smear with manual screening Comment: . [facility] Work Phone: Comment on above: No lupus anticoagula nt was detected. Thrombin time in platelet po or plasmaon 01-14-2022 Thrombin time Coag (PPP) [Time] 18.8 sec 0.0-23.0 [facility] Work Phone: Whole blood hemoglobin A1c/t otal hemoglobin ratio (mass fraction)on 01-14-2022 HbA1c (Bld) [Mass fraction] 4.6 % 3.8-5.6 [facility] Work Phone: Comment on above: Normal < 5.7 % Predi abetic 5.7 - 6.4 % Diabetic >or= 6.5 % Please note range changes. Laboratory - Chemistry and C hemistry - challengeon 01-07-2022 Glucose Ql (U) Negative [facility] Work Phone: Laboratory - Urinalysison Protein Ql (U) Negative [facility] Work Phone: Laboratory - Chemistry and C hemistry - challengeon 08-10-2017 TSH Qn 1.85 m[IU]/L Normal 0.50 - 4.30 {mIU/L} [facility]. Laboratory - Microbiology an d Antimicrobial susceptibilityon 03-31-2017 S. pyogenes Ag EIA Ql (Throat) Positive Abnormal [facility]; [facility]. Laboratory - Microbiology an d Antimicrobial susceptibilityon 08-04-2016 FLUAV Ag IA Ql (Throat) Positive Abnormal [facility].; [facility] S. pyogenes Ag EIA Ql (Throat) Negative Normal [facility]; [place] [employer] [facility] - Microbiology an d Antimicrobial susceptibilityon 04-30-2015 S. pyogenes Ag EIA Ql (Throat) Negative Normal [facility].; [place] [employer] [facility] - Microbiology an d Antimicrobial susceptibilityOrdered By: Manda Barcenas on 07-20-2013 S. pyogenes Ag EIA Ql (Throat) Negative Normal [facility]; [place] [facility] - Microbiology an d Antimicrobial susceptibilityon 04-14-2013 S. pyogenes Ag EIA Ql (Throat) Negative Normal [facility]; [place] [employer] [facility] - Microbiology an d Antimicrobial susceptibilityon 02-05-2012 S. pyogenes Ag EIA Ql (Throat) Negative Normal [facility]; [place] [employer] - Hematology and Cell countson 09-09-2011 Basophils/100 WBC (Bld) 0.00 % Normal 0.00 - 0.10 [facility].; [place] [employer] Basophils/100 WBC (Bld) 0.2 % Normal 0.0 - 2.0 % [facility].; [place] [employer], [employer]. Eosinophils/100 WBC (Bld) 0.30 % Normal 0.00 - 0.50 [facility].; [place] [employer] Eosinophils/100 WBC (Bld) 3.0 % Normal 0.0 - 6.0 % [place] [facility].; [employer]. Erythrocyte distribution width (RBC) [Ratio] 13.3 % Normal 12.0 - 15.6 % [place] [facility].; [employer]. Hematocrit (Bld) [Volume fraction] 36.9 % Normal 34 - 44 % [place] [employer].; [employer]. Hemoglobin (Bld) [Mass/Vol] 12.6 g/dL Normal 11.5 - 14.2 g/dL [facility].; [place] [employer]. Lymphocytes/100 WBC (Bld) 2.50 % Normal [facility]; [employer] Lymphocytes/100 WBC (Bld) 25.2 % Normal 20.0 - 45.0 % [place] [employer].; [facility] MCH (RBC) [Entitic mass] 28 pg Normal 27 - 33 pg [place] [facility].; [employer] MCHC (RBC) [Mass/Vol] 34 g/dL Normal 32 - 36 g/dL [facility] [employer]. MCV (RBC) [Entitic vol] 81 fL Normal 80 - 99 fL [facility] [employer].; [facility] [employer]. Monocytes/100 WBC (Bld) 0.30 % Normal [facility] [employer].; [place] [employer] Monocytes/100 WBC (Bld) 3.4 % Normal 2.0 - 13.0 % [place] [employer].; [employer]. Neutrophils/100 WBC (Bld) 68.2 % Normal 46 - 76 % [place] [employer].; [employer]. Platelet mean volume (Bld) [Entitic vol] 8.0 fL Normal 6.6 - 10.5 fL [place] [employer].; [facility] Platelets (Bld) [#/Vol] 274 10*9{Cells}/L Normal 150 - 450 10*9{Cells}/L [place] [facility].; [employer] RBC (Bld) [#/Vol] 4.55 10*6/uL Normal 4.10 - 5.3 0 10*6/uL [place] [facility].; [employer]. WBC (Bld) [#/Vol] 9.7 10*9{Cells}/L Normal 4.5 - 10.8 10*9{Cells}/L [place] [facility].; [employer]. No Panel Informationon 09-08 NEUTROPHILS 6.60 10*6/uL Normal 1.5 - 7.1 10*6/uL [place] [employer].; [employer] STREPTOZYME SCR W/ REFL TITER Positive Abnormal [facility].; [facility], [facility] Vital Signs Date Time Vital Sign Value Performing Clinician Facility 02-21-2025 13:19-0400 Body height 170.18 cm No Primary Care Physician [facility] 02-21-2025 13:19-0400 Body mass index (BMI) [Ratio] 36.6 kg/m2 No Primary Care Physician [facility] 02-21-2025 13:19-0400 Body weight 106.14 kg No Primary Care Physician [facility] 02-21-2025 13:19-0400 Diastolic blood pressure 88 mm[Hg] No Primary Care Physician [facility] 02-21-2025 13:19-0400 Systolic blood pressure 139 mm[Hg] No Primary Care Physician [facility] 02-07-2025 08:11-0400 Body height 170.18 cm No Primary Care Physician [facility] 02-07-2025 08:09-0400 Body mass index (BMI) [Ratio] 37 kg/m2 No Primary Care Physician [facility] 02-07-2025 08:09-0400 Body weight 107.5 kg No Primary Care Physician [facility] 02-07-2025 08:09-0400 Diastolic blood pressure 82 mm[Hg] No Primary Care Physician [facility] 02-07-2025 08:09-0400 Systolic blood pressure 123 mm[Hg] No Primary Care Physician [facility] 10-07-2024 10:09-0400 Body height 168.91 cm Kari NAM [facility], [facility]. 10-07-2024 10:09-0400 Body mass index (BMI) [Ratio] 38.63 kg/m2 Kari NAM [facility], [facility].; [facility], [facility]. 10-07-2024 10:09-0400 Body surface area Derived from formula 2.18 m2 Kari NAM [facility], [facility].; [facility], [facility]. 10-07-2024 10:09-0400 Body weight 110.22 kg Kari NAM [facility], [facility].; [facility], [facility] 10-07-2024 10:09-0400 Diastolic blood pressure 78 mm[Hg] Kari Casarez [facility] [employer] [facility], [employer]. Comment on above: Patient Position: Sitting; Cuff Location : Left Arm; Cuff Size: Standard 10-07-2024 10:09-0400 Heart rate 92 /min Kari Caasrez [facility] [employer] Comment on above: Pattern: Regular 10-07-2024 10:09-0400 Systolic blood pressure 119 mm[Hg] Kari Casarez [facility] [employer] Comment on above: Patient Position: Sitting; Cuff Location : Left Arm; Cuff Size: Standard 08-24-2023 15:51-0400 Body height 168.91 cm Kyara Tapia [facility], [facility].; [place] [facility] 08-24-2023 15:51-0400 Body mass index (BMI) [Ratio] 36.73 kg/m2 NadiaKayla Tapia [facility] [place] [facility] 08-24-2023 15:51-0400 Body surface area Derived from formula 2.14 m2 Nadia Willie [facility], [facility].; [place] [facility], [employer]. 08-24-2023 15:51-0400 Body temperature 98 [degF] Kyara Tapia [facility], [facility].; [employer], [employer]. Comment on above: Method: Tympanic 08-24-2023 15:51-0400 Body weight 104.78 kg Kyara Tapia [facility], [facility].; [employer] 08-24-2023 15:51-0400 Diastolic blood pressure 81 mm[Hg] Kyara Tapia [facility], [facility].; [employer], [employer]. Comment on above: Patient Position: Sitting; Cuff Location : Left Arm; Cuff Size: Large 08-24-2023 15:51-0400 Heart rate 112 /min Kyara Tapia [facility] [employer]. Comment on above: Pattern: Regular 08-24-2023 15:51-0400 Systolic blood pressure 117 mm[Hg] Kyara Tapia VARINDER [facility] Comment on above: Patient Position: Sitting; Cuff Location : Left Arm; Cuff Size: Large 05-18-2023 13:40-0500 Body height 170.18 cm PA Cuca Arriaga PA Work Phone: [facility] 05-18-2023 13:39-0500 Body mass index (BMI) [Ratio] 37.6 kg/m2 PA Cuca Arriaga PA Work Phone: [facility] 05-18-2023 13:39-0500 Body weight 109.03 kg PA Cuca Arriaga PA Work Phone: [facility] 05-18-2023 13:39-0500 Diastolic blood pressure 85 mm[Hg] PA Cuca Arriaga PA Work Phone: [facility] 05-18-2023 13:39-0500 Systolic blood pressure 140 mm[Hg] PA Cuca Arriaga PA Work Phone: [facility] 01-14-2022 16:19-0400 Body height 170.18 cm PA Cuca Arriaga PA Work Phone: [facility] Work Phone: 01-14-2022 16:16-0400 Body mass index (BMI) [Ratio] 37.5 kg/m2 PA Cuca Arriaga PA Work Phone: [facility] Work Phone: 01-14-2022 16:16-0400 Body weight 108.86 kg PA Cuca Arriaga PA Work Phone: [facility] Work Phone: 01-14-2022 16:16-0400 Diastolic blood pressure 84 mm[Hg] PA Cuca Arriaga PA Work Phone: [facility] Work Phone: 01-14-2022 16:16-0400 Systolic blood pressure 124 mm[Hg] PA Cuca Arriaga PA Work Phone: [facility] Work Phone: 01-07-2022 13:05-0400 Body mass index (BMI) [Ratio] 37.4 kg/m2 PA Cuca Arriaga PA Work Phone: [facility] Work Phone: 01-07-2022 13:05-0400 Body weight 108.52 kg PA Cuca Arriaga PA Work Phone: [facility] Work Phone: 01-07-2022 13:05-0400 Diastolic blood pressure 79 mm[Hg] PA Cuca Arriaga PA Work Phone: [facility] Work Phone: 01-07-2022 13:05-0400 Systolic blood pressure 123 mm[Hg] PA Cuca Arriaga PA Work Phone: [facility] Work Phone: 12-27-2021 14:58-0400 Body mass index (BMI) [Ratio] 37.9 kg/m2 PA Cuca Arriaga PA Work Phone: [facility] Work Phone: 12-27-2021 14:58-0400 Body weight 109.76 kg PA Cuca Arriaga PA Work Phone: [facility] Work Phone: 12-27-2021 14:58-0400 Diastolic blood pressure 82 mm[Hg] PA Cuca Arriaga PA Work Phone: [facility] Work Phone: 12-27-2021 14:58-0400 Systolic blood pressure 118 mm[Hg] PA Cuca Arriaga PA Work Phone: [facility] Work Phone: 08-11-2018 10:28-0500 Body height 168.91 cm Cuca Arriaga PA-C [facility], [facility]. 08-11-2018 10:28-0500 Body mass index (BMI) [Percentile] Per age and sex 97 % Cuca Arriaga PA-C Work Phone: [employer]; [employer] 08-11-2018 10:28-0500 Body mass index (BMI) [Ratio] 34.82 kg/m2 Cuca Arriaga PA-C Work Phone: [employer]; [employer] 08-11-2018 10:28-0500 Body surface area Derived from formula 2.09 m2 Cuca Arriaga PA-C Work Phone: [employer]; [employer]. 08-11-2018 10:28-0500 Body temperature 99.1 [degF] Cuca Arriaga PA-C Work Phone: [employer]; [employer]. 08-11-2018 10:28-0500 Body weight 99.34 kg Cuca Arriaga PA-C Work Phone: [employer]; [employer]. 08-11-2018 10:28-0500 Diastolic blood pressure 84 mm[Hg] Cuca Arriaga PA-C Work Phone: [employer]; [employer]. Comment on above: Patient Position: Sitting; Cuff Location : Left Arm; Cuff Size: Standard 08-11-2018 10:28-0500 Heart rate 112 /min Cuca Arriaga PA-C Work Phone: [employer]; [employer] Comment on above: Pattern: Regular 08-11-2018 10:28-0500 Inhaled oxygen concentration 20 % Cuca Arriaga PA-C Work Phone: [employer]; [employer]. Comment on above: Room air 08-11-2018 10:28-0500 Inhaled oxygen concentration 21 % Cuca Arriaga PA-C Work Phone: [employer]; [facility] Comment on above: Room air 08-11-2018 10:28-0500 SaO2% (BldA) [Mass fraction] 99 % Cuca Arriaga PA-C Work Phone: [place] [employer]. 08-11-2018 10:28-0500 Systolic blood pressure 129 mm[Hg] Cuca Arriaga PA-C Work Phone: [employer]. Comment on above: Patient Position: Sitting; Cuff Location : Left Arm; Cuff Size: Standard 08-10-2017 14:39-0500 Body height 168.91 cm Jennifer Kwan LPN [employer].; [employer]. 08-10-2017 14:39-0500 Body mass index (BMI) [Percentile] Per age and sex 97 % Jennifer Kwan LPN [employer] 08-10-2017 14:39-0500 Body mass index (BMI) [Ratio] 33.86 kg/m2 Jennifer Kwan LPN [employer]. 08-10-2017 14:39-0500 Body surface area Derived from formula 2.07 m2 Jennifer Kwan LPN [employer], [employer]. 08-10-2017 14:39-0500 Body weight 96.62 kg Jennifer Kwan LPN [employer]. 08-10-2017 14:39-0500 Diastolic blood pressure 80 mm[Hg] Jennifer Kwan LPN [employer]. Comment on above: Patient Position: Sitting; Cuff Location : Left Arm; Cuff Size: Standard 08-10-2017 14:39-0500 Heart rate 112 /min Jennifer Kwan LPN [employer]. Comment on above: Pattern: Regular 08-10-2017 14:39-0500 Systolic blood pressure 131 mm[Hg] Jennifer Kwan LPN [employer]. Comment on above: Patient Position: Sitting; Cuff Location : Left Arm; Cuff Size: Standard 03-31-2017 08:32-0400 Body height 168.91 cm Neilee L Mechelle SWIMMING POOL SALESPERSON [employer]. 03-31-2017 08:32-0400 Body mass index (BMI) [Percentile] Per age and sex 97 % Neilee L Vess [employer]IMM[employer] SALESPERSON [employer], [employer]. 03-31-2017 08:32-0400 Body mass index (BMI) [Ratio] 32.75 kg/m2 Neilee L Vess [employer]IMM[employer] SALESPERSON [employer], [employer]. 03-31-2017 08:32-0400 Body surface area Derived from formula 2.04 m2 Neilee L Vess [employer]IMMING [employer] SALESPERSON [employer], [employer].; [employer]. 03-31-2017 08:32-0400 Body temperature 98.9 [degF] Neilee L Vess SWIMMING [employer] SALESPERSON [employer], [employer].; [employer], [employer]. Comment on above: Method: Tympanic 03-31-2017 08:32-0400 Body weight 93.44 kg Neilee L Vess SWIMMING POOL SALESPERSON [employer], [employer].; [employer]. 03-31-2017 08:32-0400 Diastolic blood pressure 81 mm[Hg] Neilee L Vess SWIMMING POOL SALESPERSON [employer], [employer].; [employer]. Comment on above: Patient Position: Sitting; Cuff Location : Left Arm; Cuff Size: Standard 03-31-2017 08:32-0400 Heart rate 110 /min Neilee L Vess SWIMMING [employer]OL SALESPERSON [employer]. Comment on above: Pattern: Regular 03-31-2017 08:32-0400 Systolic blood pressure 141 mm[Hg] Neilee L Vess SWIMMING [employer] SALESPERSON [employer]. Comment on above: Patient Position: Sitting; Cuff Location : Left Arm; Cuff Size: Standard 08-04-2016 09:36-0500 Body height 168.91 cm [facility], [employer].; [employer]. 08-04-2016 09:36-0500 Body mass index (BMI) [Percentile] Per age and sex 95 % Jennifer Kwan VARINDER [employer].; [employer]. 08-04-2016 09:36-0500 Body mass index (BMI) [Ratio] 29.89 kg/m2 Jennifer Tangamandeep REEDER [employer]. 08-04-2016 09:36-0500 Body surface area Derived from formula 1.96 m2 Jennifer Arreagasubhash REEDER [employer].; [employer]. 08-04-2016 09:36-0500 Body temperature 100 [degF] Jennifer Oneilswati [facility] [employer]. Comment on above: Method: Tympanic 08-04-2016 09:36-0500 Body weight 85.28 kg Jennifer Tangamandeep REEDER [employer].; [employer]. 08-04-2016 09:36-0500 Heart rate 113 /min Jennifer Tangamandeep REEDER [employer].; [employer]. Comment on above: Pattern: Regular 08-04-2016 09:36-0500 Inhaled oxygen concentration 20 % Jennifer Arreagasubhash REEDER [employer], [employer].; [employer]. Comment on above: Room air 08-04-2016 09:36-0500 Inhaled oxygen concentration 21 % Wesubhash REEDER [employer].; [employer]. Comment on above: Room air 08-04-2016 09:36-0500 SaO2% (BldA) [Mass fraction] 98 % Wesubhash [employer]IMM[employer] SALESPERSON [employer].; [employer]. 07-16-2016 11:20-0500 Body height 168.91 cm Cuca Arriaga PA-C Work Phone: [employer].; [employer]. 07-16-2016 11:20-0500 Body mass index (BMI) [Percentile] Per age and sex 96 % Cuca Arriaga PA-C Work Phone: [employer]; [employer] 07-16-2016 11:20-0500 Body mass index (BMI) [Ratio] 30.68 kg/m2 Cuca Arriaga PA-C Work Phone: [employer]; [employer] 07-16-2016 11:20-0500 Body surface area Derived from formula 1.98 m2 Cuca Arriaga PA-C Work Phone: [employer]; [employer] 07-16-2016 11:20-0500 Body temperature 98.5 [degF] Cuca Arriaga PA-C Work Phone: [employer]; [employer] Comment on above: Method: Tympanic 07-16-2016 11:20-0500 Body weight 87.54 kg Cuca Thompsoner PA-C Work Phone: [employer]; [employer] 07-16-2016 11:20-0500 Diastolic blood pressure 80 mm[Hg] Cuca Arriaga PA-C Work Phone: [employer]; [employer] Comment on above: Patient Position: Sitting; Cuff Location : Right Arm; Cuff Size: Large 07-16-2016 11:20-0500 Heart rate 97 /min Cuca Arriaga PA-C Work Phone: [employer]; [employer] Comment on above: Pattern: Regular 07-16-2016 11:20-0500 Systolic blood pressure 139 mm[Hg] Cuca Arriaga PA-C Work Phone: [employer]; [employer] Comment on above: Patient Position: Sitting; Cuff Location : Right Arm; Cuff Size: Large 07-03-2016 13:07-0500 Body height 168.91 cm Annette De Los Santos SWIMMING POOL SALESPERSON Work Phone: [employer]; [employer]. 07-03-2016 13:07-0500 Body mass index (BMI) [Percentile] Per age and sex 95 % Annette De Los Santos LPN Work Phone: [employer]; [employer]. 07-03-2016 13:07-0500 Body mass index (BMI) [Ratio] 30.53 kg/m2 Annette De Los Santos LPN Work Phone: [employer]; [employer]. 07-03-2016 13:07-0500 Body surface area Derived from formula 1.98 m2 Annette De Los Santos LPN Work Phone: [employer]; [employer]. 07-03-2016 13:07-0500 Body temperature 98.8 [degF] Annette De Los Santos LPN Work Phone: [employer]; [employer]. Comment on above: Method: Tympanic 07-03-2016 13:07-0500 Body weight 87.09 kg Annette De Los Santos LPN Work Phone: [employer]; [employer]. 07-03-2016 13:07-0500 Diastolic blood pressure 67 mm[Hg] Annette De Los Santos LPN Work Phone: [employer]; [employer]. Comment on above: Patient Position: Sitting; Cuff Location : Right Arm; Cuff Size: Standard 07-03-2016 13:07-0500 Heart rate 79 /min Annette De Los Santos LPN Work Phone: [employer]; [employer]. Comment on above: Pattern: Regular 07-03-2016 13:07-0500 Systolic blood pressure 128 mm[Hg] Annette De Los Santos LPN Work Phone: [employer]; [employer] Comment on above: Patient Position: Sitting; Cuff Location : Right Arm; Cuff Size: Standard 10-16-2015 11:36-0400 Body height 168.91 cm Annette De Los Santos LPN Work Phone: [employer] 10-16-2015 11:36-0400 Body mass index (BMI) [Percentile] Per age and sex 93 % Annette De Los Santos LPN Work Phone: [employer] 10-16-2015 11:36-0400 Body mass index (BMI) [Ratio] 28.3 kg/m2 Annette De Los Santos LPN Work Phone: [employer] 10-16-2015 11:36-0400 Body surface area Derived from formula 1.91 m2 Annette De Los Santos LPN Work Phone: [employer].; [employer] 10-16-2015 11:36-0400 Body temperature 98.8 [degF] Annette De Los Santos LPN Work Phone: [employer]; [employer]. Comment on above: Method: Tympanic 10-16-2015 11:36-0400 Body weight 80.74 kg Annette De Los Santos LPN Work Phone: [employer] 08-08-2015 08:24-0500 Body temperature 97.2 [degF] [facility] [employer]. Comment on above: Method: Tympanic 08-08-2015 08:24-0500 Body weight 78.13 kg Jennifer Kwan SWIMMING [employer] SALESPERSON [employer] 08-08-2015 08:24-0500 Heart rate 68 /min Jenniefr Kwan [facility] [employer]. Comment on above: Pattern: Regular 10-09-2014 15:03-0400 Body height 168.91 cm Chantelle Knight SWIMMING POOL SALESPERSON [employer]. 10-09-2014 15:03-0400 Body mass index (BMI) [Percentile] Per age and sex 93 % Chantellejayro Knight VARINDER [facility], [facility].; [employer]. 10-09-2014 15:03-0400 Body mass index (BMI) [Ratio] 27.66 kg/m2 Chantelle Popeye Knight [facility], [facility].; [employer] 10-09-2014 15:03-0400 Body surface area Derived from formula 1.9 m2 Chantelle Knight [facility] [employer]. 10-09-2014 15:03-0400 Body temperature 98.4 [degF] Chantelle Nye Eugene [facility] [employer]. 10-09-2014 15:03-0400 Body weight 78.93 kg Chantelle E Eugene [facility], [facility].; [employer], [employer]. 07-20-2013 08:17-0500 Body height 165.1 cm Manda Barcenas [facility], [facility].; [employer]. 07-20-2013 08:17-0500 Body mass index (BMI) [Percentile] Per age and sex 95 % Manda Barcenas [facility], [facility].; [employer], [employer]. 07-20-2013 08:17-0500 Body mass index (BMI) [Ratio] 27.79 kg/m2 Manda Barcensa [facility] [employer]. 07-20-2013 08:17-0500 Body surface area Derived from formula 1.83 m2 Manda Barcenas [facility], [facility].; [employer]. 07-20-2013 08:17-0500 Body temperature 97.5 [degF] Manda Barcenas [facility].; [employer]. Comment on above: Method: Tympanic 07-20-2013 08:17-0500 Body weight 75.75 kg Manda Barcenas SWIMMING PO[employer] SALESPERSON [employer] [facility] [employer]. 04-14-2013 13:30-0500 Body temperature 99.3 [degF] sheldon Kwan LPN [facility], [facility].; [employer] [facility], [employer]. Comment on above: Method: Tympanic 04-14-2013 13:30-0500 Body weight 70.93 kg Wesubhash REEDER [facility], [facility].; [employer] 04-14-2013 13:30-0500 Heart rate 97 /min Jennifer Kwan [facility], [facility].; [employer], [employer]. Comment on above: Pattern: Regular 04-14-2013 13:30-0500 Inhaled oxygen concentration 20 % Jennifer Kwan LPN [facility], [facility].; [employer], [employer]. Comment on above: Room air 04-14-2013 13:30-0500 Inhaled oxygen concentration 21 % Jennifer Kwan LPN [facility], [facility].; [employer], [employer]. Comment on above: Room air 04-14-2013 13:30-0500 SaO2% (BldA) [Mass fraction] 99 % Gibsonsubhash [facility], [facility].; [employer], [employer]. 04-23-2012 08:38-0500 Body height 165.1 cm sheldon Kwan [facility], [facility].; [employer], [employer]. 04-23-2012 08:38-0500 Body mass index (BMI) [Percentile] Per age and sex 93 % Jennifer Kwan LPN [facility], [facility].; [place] [facility], [employer]. 04-23-2012 08:38-0500 Body mass index (BMI) [Ratio] 25.29 kg/m2 Jennifer Kwan LPN [facility], [facility].; [employer], [employer]. 04-23-2012 08:38-0500 Body surface area Derived from formula 1.76 m2 Jennifer Kwan LPN [facility], [facility].; [employer], [employer]. 04-23-2012 08:38-0500 Body temperature 98.1 [degF] Jennifer Kwan [facility], [facility].; [employer]. Comment on above: Method: Tympanic 04-23-2012 08:38-0500 Body weight 68.95 kg Jennifer Kwan [facility], [facility].; [employer] [facility]. 02-05-2012 13:44-0400 Body height 164.08 cm Jennifer Arreagalouisarichardswati [facility], [facility].; [employer] 02-05-2012 13:44-0400 Body mass index (BMI) [Percentile] Per age and sex 93 % Wesubhash [facility], [facility].; [employer] [facility]. 02-05-2012 13:44-0400 Body mass index (BMI) [Ratio] 25.14 kg/m2 Wesubhash [facility], [facility].; [employer]. 02-05-2012 13:44-0400 Body surface area Derived from formula 1.74 m2 Gibsonsubhash [facility], [facility].; [employer]. 02-05-2012 13:44-0400 Body temperature 99.1 [degF] Jennifer Arreagasubhash [facility], [facility].; [employer]. Comment on above: Method: Tympanic 02-05-2012 13:44-0400 Body weight 67.7 kg Wesubhash [facility], [facility].; [employer] 12-08-2011 17:35-0400 Body height 163.83 cm Chantelle Knight [facility], [facility].; [employer]. 12-08-2011 17:35-0400 Body mass index (BMI) [Percentile] Per age and sex 93 % Chantelle Knight SWIMMING POOL SALESPERSON [place] [facility], [facility].; [employer], [employer]. 12-08-2011 17:35-0400 Body mass index (BMI) [Ratio] 25.18 kg/m2 Chantelle Knight [facility], [facility].; [employer] 12-08-2011 17:35-0400 Body surface area Derived from formula 1.74 m2 Chantelle Knight [facility], [facility].; [employer]. 12-08-2011 17:35-0400 Body temperature 97.1 [degF] Chantelle Knight [facility], [facility].; [employer] [facility], [employer]. 12-08-2011 17:35-0400 Body weight 67.59 kg Chantelle Knight [facility], [facility].; [employer] [facility] 11-25-2011 14:42-0400 Body height 163.83 cm NadiaKayla Tapia [facility], [facility].; [employer], [employer]. 11-25-2011 14:42-0400 Body mass index (BMI) [Percentile] Per age and sex 92 % NadiaKayla Tapia [facility], [facility].; [employer] [facility], [employer]. 11-25-2011 14:42-0400 Body mass index (BMI) [Ratio] 24.84 kg/m2 NadiaKayla Tapia [facility], [facility].; [employer], [employer]. 11-25-2011 14:42-0400 Body surface area Derived from formula 1.73 m2 [facility] Willie [facility], [facility].; [employer], [employer]. 11-25-2011 14:42-0400 Body temperature 97.7 [degF] Kyara Tapia [facility], [facility].; [employer]. Comment on above: Method: Tympanic 11-25-2011 14:42-0400 Body weight 66.68 kg Kyara Tapia [facility], [facility].; [employer], [employer]. 11-25-2011 14:42-0400 Inhaled oxygen concentration 20 % Nadia Stuckey [facility], [facility].; [employer]. Comment on above: Room air 11-25-2011 14:42-0400 Inhaled oxygen concentration 21 % [facility] Willie [facility], [employer].; [employer]. Comment on above: Room air 11-25-2011 14:42-0400 SaO2% (BldA) [Mass fraction] 98 % Nadia Willie [facility] [employer]. 10-15-2011 08:37-0400 Body height 163.83 cm Kyara Tapia [facility], [facility].; [employer] [facility], [employer]. 10-15-2011 08:37-0400 Body mass index (BMI) [Percentile] Per age and sex 88 % Kyara Tapia [facility], [facility].; [employer] [facility] 10-15-2011 08:37-0400 Body mass index (BMI) [Ratio] 23.15 kg/m2 Kyara Tapia [facility], [facility].; [employer] [facility] 10-15-2011 08:37-0400 Body surface area Derived from formula 1.68 m2 Kyara Tapia [facility], [facility].; [employer], [employer]. 10-15-2011 08:37-0400 Body temperature 96.5 [degF] Kyara Tapia [facility], [facility].; [employer], [employer]. Comment on above: Method: Tympanic 10-15-2011 08:37-0400 Body weight 62.14 kg Kyara Tapia [facility], [facility].; [employer] 09-09-2011 11:19-0400 Body temperature 97.7 [degF] Jennifer Kwan [facility], [employer].; [employer], [employer]. Comment on above: Method: Tympanic 09-09-2011 11:19-0400 Body weight 61.75 kg Jennifer Kwan LPN [facility], Inc.; [employer], [employer]. 09-09-2011 11:19-0400 Diastolic blood pressure 67 mm[Hg] [facility] [employer]. Comment on above: Patient Position: Sitting; Cuff Location : Left Arm; Cuff Size: Standard 09-09-2011 11:19-0400 Heart rate 99 /min [facility] [employer], [employer]. Comment on above: Pattern: Regular 09-09-2011 11:19-0400 Systolic blood pressure 127 mm[Hg] [facility] [employer], [employer]. Comment on above: Patient Position: Sitting; Cuff Location : Left Arm; Cuff Size: Standard 05-29-2010 09:39-0500 Body height 152.4 cm Cuca Arriaga PA-C Work Phone: [employer]; [employer] 05-29-2010 09:39-0500 Body mass index (BMI) [Percentile] Per age and sex 90 % Cuca Arriaga PA-C Work Phone: [employer]; [employer] 05-29-2010 09:39-0500 Body mass index (BMI) [Ratio] 22.65 kg/m2 Cuca Arriaga PA-C Work Phone: [employer]; [employer] 05-29-2010 09:39-0500 Body surface area Derived from formula 1.48 m2 Cuca Arriaga PA-C Work Phone: [employer]; [employer] 05-29-2010 09:39-0500 Body temperature 97.4 [degF] Cuca Arriaga PA-C Work Phone: [employer]; [employer] Comment on above: Method: Tympanic 05-29-2010 09:39-0500 Body weight 52.62 kg Cuca Arriaga PA-C Work Phone: [employer]; [employer] Encounters Encounter Date Encounter Type Care Provider Facility Start: 02-21-2025 End: 02-21-2025 Patient encounter procedure Shannon Allen CNM -[facility] Work Phone: Start: 02-21-2025 End: 02-21-2025 ambulatory No Primary Care Physician -[facility] Start: 02-07-2025 End: 02-07-2025 ambulatory No Primary Care Physician -Laboratory Specimen Start: 02-07-2025 End: 02-07-[address] Jennifer Carr DO -Laboratory Specimen Work Phone: Start: 02-07-2025 End: 02-07-[address] Jennifer Carr DO -[facility] Work Phone: Start: 02-07-2025 End: 02-07-2025 ambulatory No Primary Care Physician -[facility] Start: 02-07-2025 End: 02-07-2025 ambulatory No Primary Care Physician Facility:[facility] Start: 10-07-2024 End: 10-07-2024 Periodic preventive med est patient 18-39 yrs Cuca Arriaga PA-C [facility] Start: 10-07-2024 End: 10-07-2024 Physical examination Kari NAM [facility], [employer].; [facility] Start: 03-11-2024 End: 03-11-2024 ambulatory No Primary Care Physician Facility[place] [place] Start: 08-24-2023 End: 08-24-2023 Office outpatient visit 15 minutes Cuca PIERRE-Sania [facility] Start: 08-24-2023 End: 08-24-2023 ambulatory [facility] Start: 05-20-2023 End: 05-20-2023 ambulatory PA Cuca Arriaga PA Work Phone: [facility] Work Phone: Start: 05-20-2023 End: 05-20-2023 Patient encounter procedure PA Cuca Arriaga PA Work Phone: [facility] Start: 05-18-2023 End: 05-18-2023 ambulatory PA Cuca Arriaga PA Work Phone: [facility] Work Phone: Start: 05-18-2023 End: 05-18-2023 Patient encounter procedure PA Cuca Thompsoner PA Work Phone: [facility] Start: 05-18-2023 End: 05-18-2023 Patient encounter procedure PA Cuca Thompsoner PA Work Phone: [facility] Work Phone: Start: 01-14-2022 End: 01-14-2022 Patient encounter procedure PA Cuca Arriaga PA Work Phone: [facility] Start: 01-14-2022 End: 01-14-2022 Patient encounter procedure PA Cuca Arriaga PA Work Phone: [facility] Start: 01-07-2022 End: 01-07-2022 Patient encounter procedure PA Cuca Arriaga PA Work Phone: [facility] Start: 12-27-2021 End: 12-27-2021 Patient encounter procedure PA Cuca Arriaga PA Work Phone: [facility] Start: 08-13-2018 End: 08-13-2018 Medication Cuca Thompsoner PA-C Work Phone: [employer] Start: 08-11-2018 End: 08-11-2018 Office outpatient visit 15 minutes Cuca Arriaga PA-C Work Phone: [employer]. Start: 08-10-2017 End: 08-10-2017 Patient encounter procedure Cuca Arriaga PA-C Work Phone: [employer]. Start: 03-31-2017 End: 03-31-2017 Office outpatient visit 15 minutes Cuca Arriaga PA-C Work Phone: [employer]. Start: 08-04-2016 End: 08-04-2016 Office outpatient visit 15 minutes Cuca Arriaga PA-C Work Phone: [employer]. Start: 07-16-2016 End: 07-16-2016 Patient encounter procedure Cuca Arriaga PA-C Work Phone: [employer]. Start: 07-03-2016 End: 07-03-2016 Patient encounter procedure Cuca Arriaga PA-C Work Phone: [employer]. Start: 05-20-2016 End: 05-20-2016 Medication Cuca Arriaga PA-C Work Phone: [employer]. Start: 10-16-2015 End: 10-16-2015 Office outpatient visit 15 minutes Cuca Thompsoner PA-C Work Phone: [employer]. Start: 08-08-2015 End: 08-08-2015 Patient encounter procedure Cuca Arriaga PA-C Work Phone: [employer]. Start: 04-30-2015 End: 04-30-2015 Patient encounter procedure Cuca Arriaga PA-C Work Phone: [employer]. Start: 10-09-2014 End: 10-10-2014 Patient encounter procedure Cuca Arriaga PA-C Work Phone: [employer]. Start: 07-20-2013 End: 07-20-2013 Patient encounter procedure Cuca Arriaga PA-C Work Phone: [employer] Start: 04-14-2013 End: 04-14-2013 Patient encounter procedure Cuca Arriaga PA-C Work Phone: [employer] Start: 04-23-2012 End: 04-23-2012 Patient encounter procedure Cuca Arriaga PA-C Work Phone: [employer]. Start: 03-12-2012 End: 03-12-2012 Medication Cuca Arriaga PA-C Work Phone: [employer]. Start: 03-12-2012 End: 03-12-2012 Nursing evaluation of patient and report Cuca Arriaga PA-C Work Phone: [employer]. Start: 02-05-2012 End: 02-05-2012 Patient encounter procedure Cuca Arriaga PA-C Work Phone: [employer]. Start: 12-12-2011 End: 12-12-2011 Orders Cuca Arriaga PA-C Work Phone: [employer] [facility] Start: 12-08-2011 End: 12-08-2011 Patient encounter procedure Cuca PIERRE-C Work Phone: [employer] [facility] Start: 12-01-2011 End: 12-01-2011 Medication Cuca Arriaga PA-C Work Phone: [employer] [facility] Start: 12-01-2011 End: 12-01-2011 Orders Cuca Arriaga PA-C Work Phone: [employer]. Start: 11-25-2011 End: 11-25-2011 Patient encounter procedure Cuca Arriaga PA-C Work Phone: [employer] Start: 10-15-2011 End: 10-15-2011 Patient encounter procedure Cuca Arriaga PA-C Work Phone: [employer]. Start: 09-16-2011 End: 09-16-2011 Medication Cuca PIERRE-C Work Phone: [employer]. Start: 09-09-2011 End: 09-09-2011 Patient encounter procedure Cuca Arriaga PA-C Work Phone: [employer] Start: 05-29-2010 End: 05-29-2010 Patient encounter procedure Cuca PIERRE-C Work Phone: [employer] Procedures Date Procedure Procedure Detail Performing Clinician Start: 02-07-2025 Liquid based cervica l cytology screening No Primary Care Physician Comment on above: NEGATIVE FOR INTRAEP ITHELIAL LESION OR MALIGNANCY. This liquid based Th inPrep(R) pap test was screened withthe use of an image guided system. The HPV DNA reflex sania villatoro were not met with this specimenresult therefore, no HPV testing was performed.Performed at: [address] [id number] Director: Tessy Garcia MD, Phone: [phone] Start: 02-07-2025 Urine culture No Primar y Care Physician Start: 10-07-2024 End: 10-07-2024 Depression screening Cuca J Arriaga PA -C Work Phone: Start: 10-07-2024 End: 10-07-2024 Scr dep neg, no plan reqd Cuca Guzmán Palm er PA-C Work Phone: Start: 05-18-2023 Urine culture PA Charlottejack rodríguez Bart PIERRE Work Phone: Start: 08-11-2018 End: 08-12-2018 Radex spine lumbosacral 2/3 views Cuca Guzmán Arriaga PA-C Work Phone: Start: 08-10-2017 End: 08-10-2017 Body mass index documented Cuca Pettit erma PA-C Work Phone: Start: 08-10-2017 End: 08-10-2017 Most recent diastolic blood pressure 80-89 mm hg Cuca Guzmán Arriaga PA-C Work Phone: Start: 08-10-2017 End: 08-10-2017 Most recent systolic blood press 130-139mm hg Cuca Guzmán Arriaga PA-C Work Phone: Start: 03-31-2017 End: 03-31-2017 Body mass index documented Mariah Hernandez Renny rodrigez PA-C Work Phone: Start: 12-01-2011 End: 12-01-2011 Radex cplx motion bdy sctj oth/thn urograpy uni Jace Booth MD Work Phone: Plan of Treatment Date Care Activity Detail Author CBC W Auto Differential panel - Blood [facility] Chlamydia deoxyribonucleic acid detection [facility] Hemoglobin A1c/Hemoglobin.total in Blood [facility] Hepatitis C antibody measurement [facility] Liquid based cervical cytology screening [facility] Procedure [facility] Rubella IgG measurement [facility] Serologic test for syphilis [facility] Immunizations Immunization Date Immunization Notes Care Provider Fa cility 10-30-2023 tetanus toxoid, reduced diphtheria toxoid, and acellular pertussis vaccine, adsorbed No Primary Care Physician [facility] 10-09-2003 diphtheria, tetanus toxoids and acellular pertussis vaccine Cuca Arriaga PA-C Work Phone: [facility] 10-09-2003 measles, mumps and rubella virus vaccine Cuca Arriaga PA-C Work Phone: [facility] 10-09-2003 poliovirus vaccine, inactivated Cuca Arriaga PA-C Work Phone: [facility] 08-06-2000 diphtheria, tetanus toxoids and acellular pertussis vaccine Cuca Arriaga PA-C Work Phone: [facility] 08-06-2000 haemophilus influenzae type b vaccine, PRP-T conjugate Cuca Arriaga PA-C Work Phone: [facility] 11-14-1999 diphtheria, tetanus toxoids and acellular pertussis vaccine Cuca Arriaga PA-C Work Phone: [facility] 11-14-1999 haemophilus influenzae type b vaccine, PRP-T conjugate Cuca Arriaga PA-C Work Phone: [facility] 11-14-1999 hepatitis B vaccine, pediatric or pediatric/adolescent dosage Cuca Arriaga PA-C Work Phone: [facility] 11-14-1999 measles, mumps and rubella virus vaccine Cuca Arriaga PA-C Work Phone: [facility] 11-14-1999 poliovirus vaccine, inactivated Cuca Arriaga PA-C Work Phone: [facility] 08-02-1999 diphtheria, tetanus toxoids and acellular pertussis vaccine Cuca Arriaga PA-C Work Phone: [facility] 08-02-1999 haemophilus influenzae type b vaccine, PRP-T conjugate Cuca Arriaga PA-C Work Phone: [facility] 08-02-1999 hepatitis B vaccine, pediatric or pediatric/adolescent dosage Cuca Arriaga PA-C Work Phone: [facility] 08-02-1999 poliovirus vaccine, inactivated Cuca Arriaga PA-C Work Phone: [facility] 1998 diphtheria, tetanus toxoids and acellular pertussis vaccine Cuca Arriaga PA-C Work Phone: [facility] Work Phone: 2000 haemophilus influenzae type b vaccine, PRP-T conjugate Cuca Arriaga PA-C Work Phone: [facility] 1998 hepatitis B vaccine, pediatric or pediatric/adolescent dosage Cuca Arriaga PA-C Work Phone: [facility] 1998 poliovirus vaccine, inactivated Cuca Arriaga PA-C Work Phone: [facility].; [place] [employer] [facility] NEGATED: Highlighted row has not occurred!04-22-2012 varicella virus vaccine Cuca Arriaga PA-C Work Phone: [facility] [place] [employer]. Comment on above: seen in office with infection NEGATED: Highlighted row has not occurred! influenza, injectable, quadrivalent, contains preservative Cuca Arriaga PA-C Work Phone: [facility] [place] [employer] Payers Date Payer Category Payer Self-pay [id number] 2024 Unknown [id number] 2000 Unknown [id number] [id number] Unknown GUILLERMO Unknown [id number] [id number] [id number] Unknown [id number] [id number] [id number] Unknown [id number] [id number] [id number] Unknown [id number] [id number] [id number] Social History Date Type Detail Facility Start: 01-14-2022 End: 05-18-2023 Tobacco smoking status NHIS Unknown if ever smoked [facility] Start: 2000 Sex Assigned At Female [facility] Parents Parents [employer]; [employer] Tobacco Use: Tobacco Use: ; N ever smoker. [employer]; [employer] Tobacco/Smoke Exposure: Tobacco/ Smoke Exposure: ; None. [employer]; [employer] Start: 02-02-2025 Never smoked tobacco [facility] None [employer]; [employer] Work Phone: Progress note 02-21-2025 Note Date & Type Note Facility 02-21-2025 Progress note [facility] Evaluation note 02-07-2025 Note Date & Type Note Facility 02-07-2025 Evaluation note Diagnosis Onset Date Resolution Antiphospholipid antibody positive acute February 07 8:01am Anxiety acute February 07, 2025 8:01am History of miscarriage, currently acute February 8:01am Obesity affecting acute February 07 8:01am acute February 07, 2025 8:01am Rh negative status during acute February 07 8:01am Supervision of high-risk acute February 07 8:01am [facility] Work Phone: Evaluation note 02-07-2025 Note Date & Type Note Facility 02-07-2025 Evaluation note Diagnosis Onset Date Resolution Antiphospholipid antibody positive acute February 07 8:01am Anxiety acute February 07, 2025 8:01am History of miscarriage, currently acute February 8:01am Obesity affecting acute February 07 8:01am acute February 07, 2025 8:01am Rh negative status during acute February 07 8:01am Supervision of high-risk acute February 07 8:01am Antiphospholipid antibody positive acute February 21, 2025 1:15pm Anxiety acute February 1:15pm History of miscarriage, currently acute February 1:15pm Obesity affecting acute February 21, 2025 1:15pm acute February 1:15pm Rh negative status during acute February 21, 2025 1:15pm Supervision of high-risk acute February 21, 2025 1:15pm [facility] Work Phone: Progress note 02-07-2025 Note Date & Type Note Facility 02-07-2025 Progress note [facility] Evaluation note Note Date & Type Note Facility Evaluation note Diagnosis Onset Date Depression acute Irregular menses acute Incomplete acute Complete acute History of recurrent miscarriages [facility] Work Phone: Evaluation note Note Date & Type Note Facility Evaluation note Diagnosis Onset Date Confirm viability with history of miscarriage, ultrasound acute Depression acute History of recurrent miscarriages acute Obesity (BMI 30-39.9) acute acute Supervision of high-risk [facility] Work Phone: Evaluation note Note Date & Type Note Facility Evaluation note Diagnosis Onset Date Resolution Antiphospholipid antibody positive acute February 07 8:01am Anxiety acute February 07, 2025 8:01am History of miscarriage, currently acute February 8:01am Obesity affecting acute February 07 025 8:01am acute February 07, 2025 8:01am Rh negative status during acute February 07 8:01am Supervision of high-risk acute February 07 8:01am [facility] Work Phone: Progress note Note Date & Type Note Facility Progress note Note Date/Time February 07, 2025 8:45am [facility] [address] [place] [address], [address] [place] [address] OFFICE VISIT Date of Service: 02/07/25 MR#: [id number] Acct: [id number] Name: SHERRY CARREON Rep #: [id number] : 2000 Provider: Dr. 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 Is patient in pain?: No Allergies amoxicillin (From Augmentin) Allergy (Intermediate, Verified 02/07/25 08:09) Hives clavulanic acid (From Augmentin) Allergy (Intermediate, Verified 02/07/25 08:09) Hives Penicillins Allergy (Intermediate, Verified 02/07/25 08:09) Hives Medications ?Medication ?Instructions ?Recorded ?Confirmed ?Type mv-mn 110-FA 180 mcg-om3 35 mg-dha tab PO 12/20/2108/02 History 25 mg-epa 5 mg-fish oil chew tablet escitalopram oxalate 10 mg tablet 5 mg PO QDAY 5 02/07/25 History magnesium chelate, malate 360 mg PO DAILY 02/02/2508/02 History Last Menstrual Period: 12/10/24 Zika: Zika virus screening: Negative : No PFSH PFSH Medical History Depression Oligohydramnios Headache Seasonal allergies Migraine Complete History of miscarriage, currently Supervision of high risk , antepartum Surgical History [place] teeth removed Family History Father Hypertension Grandmother Hypertension Aunt Hypertension Grandfather Cancer, Onset Age: 50 Paternal- stomach Mother FHx: migraine headaches Social History adopted: No household members: spouse and children housing: house number of children: 1 service: No current occupational status: employed 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 current occupational exposures/hazards: No pets and animals: Yes (outside) pets and animals: dog(s) history of recent travel: No ([place]) sexually active: Yes Smoking Status: Never smoker alcohol intake: former details: social/occasional prior to substance use type: does not use well-balanced diet: about half the time caffeine: Yes (Occasional- ) Type: carbonated beverages Number of servings: 1 eating out: 1-3 times/week during the past year weight has: remained stable what type of physical activity do you participate in: none frequency: 1-2 times per week duration: 45-60 minutes/day suzanne/bahai: [employer] seatbelt use: always do you feel safe at home: Yes 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 Date Name GA/Weeks Outcome Route Bth Weight Infant Gen Labor Lgth A nesthesia Del Locatn Provider FOB 03/05/21 4 spontaneous 01/14/22 6 spontaneous 01/22/24 Beau 41 live - full term 7#10oz Male epidu ral [facility] Jennifer Carr [place] Delivery Date: 01/14/22 Last Updated by: Rubina Rg MD no d and c required, cytotec given Delivery Date: 01/22/24 Last Updated by: Dee Krishnan see problem list for complications, IOL post dates HPI *EST* NOB LMP 7, EZRA 09/16 Details: SHERRY CARREON is a 24 year old who presents for New OB visit. OB Visit EZAR Calculator Estimated Delivery Date Method Current WG Current Estimate 09/16/25 LMP (Certain) 8w 3d Comments: HIV: Urine Culture: Sequential Screen: NIPT Screen: Estimated Due Date: 09/16/25 Expected Delivery Route/Plan Labor Preferences- CB/BF classes: [] labor support person: [] labor intervention preferences: [] pain management options preferred: [] cut cord/dad catch: [] : [] PP control planned: [] discussed possible routes of delivery and associated risks: [] special requests: [] Specific Issue/Plans Covid status: [] Flu vaccine: [] Tdap vaccine: [] Rhogam: [] LARC form signed: [] Problem list reviewed and updated with the most current plan of care details and appropriate orders placed. Relevant counseling for the gestational age provided. Continue routine care and follow up unless otherwise noted in visit notes/problem list details Initial Weight: Not Recorded Date -?-?-?-?-?-?-?-?-?-?-?-?- EGA Weight BP Urine Prot -?-?-?-?-?-?-?-?-?-?-?-?- Glucose FHR FuHt Pres Dilation -?-?-?-?-?-?-?-?-?-?-?-?- Effaced St Visit Note 02/07/25 -?-?-?-?-?-?-?-?-?-?-?-?- 8w 3d 237 lb 123/82 -?-?-?-?-?-?-?-?-?-?-?-?- 111 -?-?-?-?-?-?-?-?-?-?-?-?- JV- uncertain ab out CRL. slight flickering seen. what I could see the CRL is 6 weeks 2 days. recommend repeating in 2 weeks. moderate free fluid in the cul-de-sac. no adnexal masses. pt has frequent vomiting. zofran script sent. recommend adri and peppermint. Menstrual History Last Menstrual Period: 12/10/24 Reported LMP: definite Normal amount/duration: Yes Frequency in days: 40 On hormonal BC at conception: No hCG+: 01/23/25 Antepartum Record Genetic Screening: Congenital Heart Defect: Other, Neural Tube Defect: Other, Hemoglobinopathy Or Carrier: Patient (Pt with APL antibody + last ), Cystic Fibrosis: Other, Chromosome Abnormality: Other, Manfred-Sachs: Other, Hemophilia: Other, Intellectual Disability/Autism: Other, Recurrent Loss/Stillbirth: Patient (Pt 2 miscarriages), Other Structural Defect: Other, Other Genetic Disease: Other and Maternal Metabolic Disorder: Other Infection History: Live with someone with TB or Exposed to TB: No, Patient or Partner has history of Genital Herpes: No, Rash or Viral illness since last mentrual period: No, Prior GBS-Infected child: No, History of STD: No, HIV Infection: No, History of Hepatitis: No, Recent travel outside of [place]: No, Concern for hepatitis exposure: No, Varicella immune: Yes (immune) and Covid Vaccinated: No Medical History Medical History: Positive: Psychiatric (escitalopram for anxiety), D (Rh) Sensitized (A-), Seasonal allergies (mild- moderate), Drug/latex allergies/reactions (PCN, Amocicillin), Operations/hospitalizations (wisdom teeth), Relevant family history (See PFSH) and Other (obesity) and Negative: Diabetes, Hypertension, Heart disease, Auto-immune disorder, Kidney disease/UTI, Neurologic/epilepsy, Depression/ depression, Hepatitis/liver disease, Varicosities/phlebitis, Thyroid dysfunction, Trauma/domestic violence, History of blood transfusions, Pulmonary (e.g.,TB,Asthma), Breast, Medical Technologist Blood Bank surgery, Anesthetic complications, History of abnormal pap (Due for pap), Uterine anomaly/alban, Infertility and Anti-retroviral treatment ACOG First Trimester First Trimester: Desire for , Alcohol, Tobacco Cessation, Illicit/Recreational Drug/Substance Use, Intimate Partner Violence, Barriers to care, Unstable Housing, Communication Barriers, Environmental/Work Hazards, Anticipated Course of Care, Nurtrition and weight gain, Toxoplasmosis Precations, Use of Any medications, Sexual activity, Exercise, Dental Care, Sauna/Hot tub use, Seat Belt use, Childbirth classes/Hospital facilities, Travel, Indications for Ultrasound and Screening for Aneuploidy; Discussed ROS Const Reports system reviewed and no additional complaints, except as documented, Reports fatigue and Denies fever(s) Eyes Reports system reviewed and no additional complaints, except as documented ENT Reports system reviewed and no additional complaints, except as documented Card Denies chest pain and Denies dyspnea Resp Reports system reviewed and no additional complaints, except as documented, Denies cough and Denies dyspnea GI Denies abdominal pain and Reports nausea Reports system reviewed and no additional complaints, except as documented Musc Reports system reviewed and no additional complaints, except as documented Skin/Breast Reports system reviewed and no additional complaints, except as documented Neuro Yes system reviewed and no additional complaints, except as documented Psych Reports system reviewed and no additional complaints, except as documented Endo Reports system reviewed and no additional complaints, except as documented and Reports fatigue Exam Const General: healthy appearing, comfortable and no acute distress Orientation: alert [facility] Head: normal to inspection, normocephalic and atraumatic Ears: hearing grossly normal bilaterally and external ears normal Nose: external nose normal and nares normal Mouth: oral mucosae normal Teeth and gingiva: dentition normal Eyes General: appearance normal, both eyes and all related structures Neck Neck: normal visual inspection, no lymphadenopathy and supple Thyroid: thyroid normal Chest Chest palpation & inspection: normal inspection of the chest Breast inspection: normal inspection of the breasts and normal inspection of the axillae Breast palpation: normal palpation of the breasts and normal palpation of the axillae Resp Effort & Inspection: normal respiratory effort GI Inspection: normal to inspection Palpation: soft and no hepatosplenomegaly General: bladder normal to palpation External Female Exam: normal external appearance and normal appearance of the urethra Urethra: normal appearance of the urethra Speculum Exam - Vagina: normal appearance of the vagina and normal vaginal discharge Speculum Exam - Cervix: normal appearance of the cervix Bimanual Exam- Vagina & Uterus: normal bimanual exam, bladder normal to palpation, non-tender and other Bimanual Exam- Adnexa, other: non-tender Skin General: no rashes or lesions noted Neuro Motor: muscle tone normal throughout and no movement abnormalities noted Extrem General: normal to inspection and full ROM Supplemental Info ACOG book given and patient encouraged to read about nutrition, exercise, weight gain, and food avoidance in . Coding Level of Care Code OB Routine Diagnoses Supervision of high-risk O09.90 Z34.90 Obesity affecting O99.210 Rh negative status during O26.899; Z67.91 Anxiety F41.9 History of miscarriage, currently O09.299 Antiphospholipid antibody positive R76.0 Assessment and Plan Assessment and Plan (1) Supervision of high-risk : Status: Acute Comment: , EZRA 09/16/25, DORINA Randle, Carlos (2) : Status: Acute Comment: elects NIPT with Gender, declined carrier (3) Obesity affecting : Status: Acute Comment: HgbA1c (4) Rh negative status during : Status: Acute (5) Anxiety: Status: Acute Comment: escitalopram (6) History of miscarriage, currently : Status: Acute Comment: x2 (7) Antiphospholipid antibody positive: Status: Acute Comment: Only anticardiolipin IgA present-per MFM not problematic. ASA 81mg only Orders: Orders CBC W/Diff, Automated 02/02/25 O09.90 - Supervision of high risk , unspecified, unspecified trimester Type & Screen 02/02/25 O09.90 - Supervision of high risk , unspecified, unspecified trimester Rubella IgG 02/02/25 O09.90 - Supervision of high risk , unspecified, unspecified trimester Hepatitis C Antibody 02/02/25 O09.90 - Supervision of high risk , unspecified, unspecified trimester Hepatitis B Surface Antigen 02/02/25 O09.90 - Supervision of high risk , unspecified, unspecified trimester Culture, Urine 02/02/25 O09.90 - Supervision of high risk , unspecified, unspecified trimester Syphilis Antibodies 02/02/25 O09.90 - Supervision of high risk , unspecified, unspecified trimester Chlamydia/GC AGUSTÍN aptima 02/02/25 O09.90 - Supervision of high risk , unspecified, unspecified trimester HIV 02/02/25 O09.90 - Supervision of high risk , unspecified, unspecified trimester Hemoglobin A1c 02/02/25 O09.90 - Supervision of high risk , unspecified, unspecified trimester, O99.210 - Obesity complicating , unspecified trimester JUANY 02/02/25 O09.90 - Supervision of high risk , unspecified, unspecified trimester Hemoglobinopathy Profile 02/02/25 O09.90 - Supervision of high risk , unspecified, unspecified trimester, R76.0 - Raised antibody titer PAP I-G w/rfx hrHPV-Aptima 02/02/25 O09.90 - Supervision of high risk , unspecified, unspecified trimester, Z12.4 - Encounter for screening for malignant neoplasm of cervix Plan Patient oriented to practice and discussed care expectations and screenings. ACOG book offered to patient. Discussed routine and specially indicated labs if needed- patient consents to testing. See problem list details for plan information. Optional screening including maternal carrier screenings, neural tube defect screening, genetic screening options including quad screen, nuchal translucency, sequential screening, and NIPT screening offered to patient and patient chose: nipt with blood type. (is rh neg and is rh pos) 02/07/25 0845 <Electronically signed by Jennifer Lamb DO> Date _ Jennifer Carr DO Cosigner Signature: Date (if applicable) CC: ~ [facility] Work Phone: Progress note Note Date & Type Note Facility Progress note Note Date/Time February 21, 2025 1:37pm [facility] [address] [place] [address], [address] [place] [address] OFFICE VISIT Date of Service: 02/21/25 MR#: [id number] Acct: [id number] Name: SHERRY CARREON Rep #: [id number] : 2000 Provider: GLEN Allen Age/Sex: 24/F Location: [facility] [place] Status: Signed Intake Vital Signs 02/07/25 08:11 02/21/25 13:19 Height 5 ft 7 in 5 ft 7 in Weight: 234 lb BMI 36.6 BP 139/88 H Intake Visit Reasons: recheck *per JV 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 Is patient in pain?: No Allergies amoxicillin (From Augmentin) Allergy (Intermediate, Verified 02/21/25 13:18) Hives clavulanic acid (From Augmentin) Allergy (Intermediate, Verified 02/21/25 13:18) Hives Penicillins Allergy (Intermediate, Verified 02/21/25 13:18) Hives Medications ?Medication ?Instructions ?Recorded ?Confirmed ?Type mv-mn 110-FA 180 mcg-om3 35 mg-dha tab PO 12/20/21 History 25 mg-epa 5 mg-fish oil chew tablet escitalopram oxalate 10 mg tablet 5 mg PO QDAY 5 02/21/25 History magnesium chelate, malate 360 mg PO DAILY 02/02/25 History ondansetron 4 mg disintegrating 4 mg PO Q6H PRN nausea and 02/07/25 02/21/25 Rx tablet vomiting #30 tabs Last Menstrual Period: 12/10/24 : No PFSH PFSH Medical History Depression Oligohydramnios Headache Seasonal allergies Migraine Complete History of miscarriage, currently Supervision of high risk , antepartum Surgical History [place] teeth removed Family History Father Hypertension Grandmother Hypertension Aunt Hypertension Grandfather Cancer, Onset Age: 50 Paternal- stomach Mother FHx: migraine headaches Social History adopted: No household members: spouse and children housing: house number of children: 1 current occupational status: employed 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 current occupational exposures/hazards: No pets and animals: Yes (outside) pets and animals: dog(s) history of recent travel: No ([place]) sexually active: Yes Smoking Status: Never smoker alcohol intake: former details: social/occasional prior to substance use type: does not use well-balanced diet: about half the time caffeine: Yes (Occasional- ) Type: carbonated beverages Number of servings: 1 eating out: 1-3 times/week during the past year weight has: remained stable what type of physical activity do you participate in: none frequency: 1-2 times per week duration: 45-60 minutes/day suzanne/bahai: [employer] seatbelt use: always do you feel safe at home: Yes 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 Date Name GA/Weeks Outcome Route Bth Weight Infant Gen Labor Lgth Anesthesia Del Locatn Provider FOB 03/05/21 4 spontaneous 01/14/22 6 spontaneous 01/22/24 Beau 41 live - full term 7#10oz Male epidu [facility] Jennifer Chakraborty Delivery Date: 01/14/22 Last Updated by: Rubina Rg MD no d and c required, cytotec given Delivery Date: 01/22/24 Last Updated by: Dee Krishnan see problem list for complications, IOL post dates HPI recheck *per JV Details: SHERRY CARREON is a 24 year old who presents for routine OB visit. OB Visit EZRA Calculator Estimated Delivery Date Method Current WG Current Estimate 10/01/25 Ultrasound #1 8w 2d Other Estimates 09/16/25 LMP (Certain) 10w 3d 10/03/25 Ultrasound #2 8w 0d Expected Delivery Route/Plan Labor Preferences- CB/BF classes: [] labor support person: [] labor intervention preferences: [] pain management options preferred: [] cut cord/dad catch: [] : [] PP control planned: [] discussed possible routes of delivery and associated risks: [] special requests: [] Specific Issue/Plans Covid status: [] Flu vaccine: [] Tdap vaccine: [] Rhogam: [] LARC form signed: [] Problem list reviewed and updated with the most current plan of care details and appropriate orders placed. Relevant counseling for the gestational age provided. Continue routine care and follow up unless otherwise noted in visit notes/problem list details Initial Weight: 237 lb Date -?-?-?-?-?-?-?-?-?-?-?-?- EGA Weight BP Urine Prot -?-?-?-?-?-?-?-?-?-?-?-?- Glucose FHR FuHt Pres Dilation -?-?-?-?-?-?-?-?-?-?-?-?- Effaced St Visit Note 02/07/25 -?-?-?-?-?-?-?-?-?-?-?-?- 6w 2d 237 lb (+0 oz) 123/82 -?-?-?-?-?-?-?-?-?-?-?-?- 111 -?-?-?-?-?-?-?-?-?-?-?-?- JV- uncertain ab out CRL. slight flickering seen. what I could see the CRL is 6 weeks 2 days. recommend repeating in 2 weeks. moderate free fluid in the cul-de-sac. no adnexal masses. pt has frequent vomiting. zofran script sent. recommend adri and peppermint. 02/21/25 -?-?-?-?-?-?-?-?-?-?-?-?- 8w 2d 234 lb (-3 lb) 139/88 Negative -?-?-?-?-?-?-?-?-?-?-?-?- Negative 172 -?-?-?-?-?-?-?-?-?-?-?-?- KW- no vb/crampi ng. here for rescan today. CRL 1.61cm and cons with previous scan ACOG First Trimester First Trimester: Desire for , Alcohol, Tobacco Cessation, Illicit/Recreational Drug/Substance Use, Intimate Partner Violence, Barriers to care, Unstable Housing, Communication Barriers, Environmental/Work Hazards, Anticipated Course of Care, Toxoplasmosis Precations, Use of Any medications, Sexual activity, Exercise, Dental Care, Sauna/Hot tub use, Seat Belt use, Childbirth classes/Hospital facilities, Travel, Indications for Ultrasound and Screening for Aneuploidy; Discussed ROS Const Reports system reviewed and no additional complaints, except as documented Eyes Reports system reviewed and no additional complaints, except as documented ENT Reports system reviewed and no additional complaints, except as documented Card Reports system reviewed and no additional complaints, except as documented Resp Reports system reviewed and no additional complaints, except as documented GI Reports system reviewed and no additional complaints, except as documented, Denies nausea and Denies vomiting Reports system reviewed and no additional complaints, except as documented Musc Reports system reviewed and no additional complaints, except as documented Skin/Breast Reports system reviewed and no additional complaints, except as documented Neuro Yes system reviewed and no additional complaints, except as documented Psych Reports system reviewed and no additional complaints, except as documented Endo Reports system reviewed and no additional complaints, except as documented Wilmar/Lymph Reports system reviewed and no additional complaints, except as documented Aller/Immun Reports system reviewed and no additional complaints, except as documented Exam Const General: cooperative, healthy appearing and no acute distress Orientation: alert, awake and oriented x3 Neck Neck: normal visual inspection and full ROM Resp Effort & Inspection: normal respiratory effort, able to speak in complete sentences and symmetric chest movement GI Inspection: normal to inspection Palpation: soft and other Other: gravid Skin General: no rashes or lesions noted Neuro General: patient alert, patient awake and patient oriented x3 Cognition: normal cognition Speech: speech normal Gait: normal gait Motor: muscle tone normal throughout Extrem General: normal to inspection and full ROM Psych Appearance: grossly normal Mental Status: mental status grossly normal Mood: congruent mood Affect: normal affect Speech and Movement: speech and movement normal Attitude: cooperative Thought Process: normal Thought Content: normal Judgment: judgment good Results POC Urinalysis 2 Dip (Clinic) Office Urine Glucose Negative Last Edit by Radha Booth on 02/21/25 13:27 Office Urine Protein Negative Last Edit by Radha Booth on 02/21/25 13:27 Coding Level of Care Code OB Routine Diagnoses Supervision of high-risk O09.90 8 weeks gestation of Z3A.08 Weeks of gestation: 8 weeks Obesity affecting O99.210 Rh negative status during O26.899; Z67.91 Anxiety F41.9 History of miscarriage, currently O09.299 Antiphospholipid antibody positive R76.0 Assessment and Plan Assessment and Plan (1) Supervision of high-risk : Status: Acute Comment: , EZRA 09/16/25, DORINA Randle, Carlos (2) : Status: Acute Qualifiers: Weeks of gestation: 8 weeks Qualified Code(s): Z3A.08 - 8 weeks gestation of Comment: elects NIPT with Gender, declined carrier (3) Obesity affecting : Status: Acute Comment: HgbA1c (4) Rh negative status during : Status: Acute (5) Anxiety: Status: Acute Comment: escitalopram (6) History of miscarriage, currently : Status: Acute Comment: x2 (7) Antiphospholipid antibody positive: Status: Acute Comment: Only anticardiolipin IgA present-per MFM not problematic. ASA 81mg only Orders: Orders POC Urinalysis 2 Dip (Clinic) Today Plan Details Additional Comments: ACOG trimester education reviewed and updated. see problem list details for updated plan management information and see below for orders placed at this visit. GA appropriate handout given. 02/21/25 6737 <Electronically signed by Shannon verdugo CNM> Date _ Shannon Allen CNM Cosigner Signature: Date (if applicable) CC: ~ [facility] Work Phone: Reason for referral (narrative) Note Date & Type Note Facility Reason for referral (narrative) No reason for referral information available [facility] Work Phone: Chief Complaint and Reason for Visit Chief Complaint NOB LMP 5/6 Early OB ROOM 2 for rescan early OB, rescan per JV E-ORDER Reason for Visit Depression Irregular menses Incomplete Complete History of recurrent miscarriages Chief Complaint New OB, 2 pervious m iscarriages Reason for Visit Confirm viabil ity with history of miscarriage, ultrasound Depression History of recurrent miscarriages Obesity (BMI 30-39.9) Supervision of high-risk Chief Complaint Admit Date *EST* NOB LMP 7/, EZRA 09/16 8:01am Reason for Visit Admit Date Antiphospholipid antibody positive [facility]2024 8:01am Anxiety February 07, 2025 8:01am History of miscarriage, currently pregna nt February 07, 2025 8:01am Obesity affecting February 8:01am February 07, 2025 8:01am Rh negative status during Feb [facility]2024 8:01am Supervision of high-risk [facility] 2024 8:01am Chief Complaint Admit Date *EST* NOB LMP 7/, EZRA 09/16 d2024 8:01am recheck *per JV February 21, 2025 1:15pm Reason for Visit Admit Date Antiphospholipid antibody positive [email or web address] 2024 8:01am Anxiety February 07, 2025 8:01am History of miscarriage, currently pregna nt February 07, 2025 8:01am Obesity affecting February 8:01am February 07, 2025 8:01am Rh negative status during Feb 8:01am Supervision of high-risk [facility]2024 8:01am Antiphospholipid antibody positive [facility] 2024 1:15pm Anxiety February 21, 2025 1:15pm History of miscarriage, currently pregna nt February 21, 2025 1:15pm Obesity affecting February 212024 1:15pm February 21, 2025 1:15pm Rh negative status during [facility]2024 1:15pm Supervision of high-risk [facility] 2024 1:15pm Family History Relationship Condition Age at Onset Recorded Date/T [place] father Hypertension Unknown grandmother Hypertension Unknown aunt Hypertension Unknown grandfather Malignant neoplasm 50 mother Family history of migraine headaches Unkn own No Family History Records Found Father Status:Active Comments:In good health. Mother Status:Active Comments:In good health. Summary Purpose Advance Directives No Advanced Directives Records FoundNo Advanced Directives Records Found Additional Source Comments Goals (unrecognized section and content) Goals may be documented in a n alternate sectionGoals may be documented in an alternate sectionGoals may be documented in an alternate sectionGoals may be documented in an alternate sectionGoals may be documented in an alternate sectionGoals may be documented in an alternate section INFORMATION SOURCE (unrecogn ized section and content) DATE CREATED AUTHOR 08/25/2023 [facility] DATE CREATED AUTHOR AUTHOR'S ORGANIZ ATION 02/22/2025 [facility] Care Teams (unrecognized sec tion and content) Team Status: Active Member Role Status Dates ARIAN PERALES Family Provider Active IGNACIO Zepeda Primary Care Provider Active Team Status: Inactive Member Role Status Dates IGNACIO Zepeda Primary Care Provider, Referring Provider Active Nicole Tyler CNM Attending Provider Active Team Status: Active Member Role Status Dates IGNACIO Zepeda Primary Care Provider Active Nicole Tyler CNM Attending Provider, Referring Pr ovider Active Team Status: Inactive Member Role Status Dates IGNACIO Zepeda Primary Care Provider Active Nicole Tyler CNM Attending Provider, Referring Pr leeanneer Active Team Status: Active Member Role/Relationship Status Dates ARIAN MIAMI Family Provider Active No Primary Care Physician Primary Care Provider Active Team Status: Inactive Member Role/Relationship Status Dates No Primary Care Physician Primary Care Provider Active Start: February 07, 2025 End: February 07, 2025 No Primary Care Physician Referring Provider Active Start: February 07, 2025 End: February 07, 2025 Dr. Jennifer Carr DO Attending Provider Activ e Start: February 07, 2025 End: February 07, 2025 Team Status: Inactive Member Role/Relationship Status Dates No Primary Care Physician Primary Care Provider Active Start: February 07, 2025 End: February 07, 2025 Dr. Jennifer Carr DO Attending Provider Activ e Start: February 07, 2025 End: February 07, 2025 Team Status: Inactive Member Role/Relationship Status Dates No Primary Care Physician Primary Care Provider Active Start: February 21, 2025 End: February 21, 2025 No Primary Care Physician Referring Provider Active Start: February 21, 2025 End: February 21, 2025 Shannon Allen CNM Attending Provider Active S tart: February 21, 2025 End: February 21, 2025 FOR RECORDS PERTAINING TO PATIENTS WHO ARE OR HAVE BEEN ENROLLED IN A CHEMICAL DEPENDENCY/SUBSTANCEABUSE PROGRAM, SOME INFORMATION MAY BE OMITTED. This clinical summary was aggregated from multiple sources. Caution should be exercised in using it in the provision of clinical care. This summary normalizes information from multiple sources, and as a consequence, information in this document may materially change the coding, format and clinical context of patient data. In addition, data may be omitted in some cases. CLINICAL DECISIONS SHOULD BE BASED ON THE PRIMARY CLINICAL RECORDS. [employer] provides no warranty or guarantee of the accuracy or completeness of information in this document.
[2025-02-27 02:52] LABS: Mucous, Urine 0 SEEN /hpf (<or=2+); Red Blood Cells-Urine 0 SEEN /hpf (0-5)
[2025-02-27 02:56] LABS: Color, Urine Yellow (Yellow); Glucose, Dipstick Normal (Normal); Ketone-Dipstick Negative (Negative); Leukocyte Esterase-Dipstick Negative /ul (Negative); Nitrite-Dipstick Negative (Negative); Occult Blood-Urine Negative /ul (Negative); Protein-Dipstick 15 mg/dl (Negative); Specific Gravity, Urine 1.015 (1.002-1.030); Urine Bilirubin Dipstick Negative (Negative)
[2025-02-27 03:06] LABS: Squamous Epithelial Cells - UA 0-5 SEEN /hpf (5-10)
[2025-02-27 03:22] LABS: AST(SGOT) 20 U/L (<=31); Alanine Aminotransfer ALT/SGPT 33 U/L (<=34); Albumin, Serum 4.2 g/dL (3.5-5.0); Alkaline Phosphatase 62 U/L (35-104); Anion Gap 13 (5-15); BUN 10 mg/dL (4-19); BUN/Creat Ratio 14.3 RATIO (10-20); Calcium,Total 9.6 mg/dL (7.6-11.0); Carbon Dioxide 20.4 mmol/L (21.0-32.0); Chloride 103 mmol/L (98-108); Estimated Creatinine Clearance 145.02 ml/min (50-250); Globulin 2.8 g/dL (2.2-4.2); Glucose 101 mg/dL (70-99); Lipase 53 U/L (13-75); Potassium 3.5 mmol/L (3.3-5.1)
[2025-02-27 03:50] VITALS: BP 124/57; PULSE 84; RESP 17; O2SAT 100
[2025-02-27 04:12] VITALS: BP 116/67; PULSE 86; RESP 18; TEMP 36.8; O2SAT 100
== END 2025-02-27 04:14 | disposition home or self-care (01) ==
PROVIDERS: Emergency Provider Emergency Medicine; PCP Physician Assistant; Visit Provider Emergency Medicine
DX: O99.891 Other specified diseases and conditions complicating pregnancy (principal); O99.011 Anemia complicating pregnancy, first trimester; R10.11 Right upper quadrant pain; Z3A.01 Less than 8 weeks gestation of pregnancy
CPT/HCPCS: 80053; 81001; 83690; 85025; 96361; 96374; 96375; 99283; J2405

== ENCOUNTER → 2025-03-15 | Outpatient (CLI) | payer BC, SELFPAY ==
[2025-03-15 16:39] LABS: Hematocrit 37.1 % (37-47); Hemoglobin 12.6 g/dL (12.0-15.0); Immature Granulocytes Count 0.030 X10^3/uL (0.0-0.0); Mean Corp Hgb Conc 34.0 g/dL (32-36); Mean Corpuscular Volume 84.3 fL (81-99); Mean Platelet Vol. 9.0 fl (6.2-12.0); NRBC Flagged by Analyzer 0 % (0-5); Platelet Count 248 K/mm3 (150-450); RBC Distribution Width CV 13.4 % (11.6-14.6); RBC Distribution Width SD 41.5 fl (35.1-43.9); Red Blood Count 4.40 M/mm3 (4.2-5.4); White Blood Count 8.7 K/mm3 (4.4-11.0)
[2025-03-15 17:15] LABS: HIV Nonreactive (Nonreactive); Hepatitis B Surface Antigen Nonreactive (Nonreactive); Hepatitis C Antibody Nonreactive (Nonreactive); Syphilis Antibodies Nonreactive (Nonreactive)
== END | disposition home or self-care (01) ==
PROVIDERS: Obstetrics & Gynecology; PCP Physician Assistant; Visit Provider Nurse Practitioner Women's Health
DX: O99.210 Obesity complicating pregnancy, unspecified trimester (principal); O09.90 Supervision of high risk pregnancy, unspecified, unspecified trimester; Z3A.00 Weeks of gestation of pregnancy not specified
CPT/HCPCS: 36415; 83021; 83036; 85025; 85660; 86703; 86762; 86780; 86803; 86850; 86900; 86901; 87340